=== PATIENT | female | born 1950 | race Caucasian/White ===

== ENCOUNTER 2019-12-21 07:35 | Inpatient (IN) ==
[2019-12-21] MEDS ORDERED: NS 1,000 ML ONE (07:42)
[2019-12-21] MEDS ORDERED: D50W SYRINGE ONE ×2 (07:46→08:15)
[2019-12-21] MEDS ORDERED: NS 1,000 ML IV ONE ×2 (07:49)
[2019-12-21] MEDS ORDERED: ROCEPHIN 1 GM in NS 50 ML IV ONE (07:59)
[2019-12-21] MEDS ORDERED: D50W SYRINGE IV ONE ×2 (07:59→20:46)
--- NOTE | 2019-12-21 08:05 | PROVIDER DOCUMENTATION ---
HPI-General Adult - General Chief Complaint: SEPSIS ALERT - P Stated Complaint: UNRESPONSIVE Time Seen by Provider: 12/21/19 07:58 Source: other (NURSING HOME 2 STAFF [facility]) Allergies/Adverse Reactions: Patient Allergies Allergy/AdvReac Type Severity Reaction Status Date / Time erythromycin base Allergy Unknown Unknown Verified 12/21/19 09:00 [Erythromycin Base] Penicillins Allergy Unknown Unknown Verified 12/21/19 09:00 Home Medications: Home Medication List Medication Instructions Recorded Confirmed Last Taken Type Polyethylene Glycol 3350 [Miralax] 17 gm PO DAILY #30 powd.pack 01/19/14 12/21/19 03/07/15 07:00 Rx Levetiracetam [Keppra] 750 mg PO BID 03/07/15 12/21/19 03/07/15 07:00 History Ranitidine [Zantac Liquid] 75 mg PO BID #500 bottle 02/07/16 12/21/19 Unknown Rx Alprazolam [Xanax] 0.5 mg PO TID 09/10/16 12/21/19 Unknown History Calcarb 600 With Vit D 1 tab PO BID 12/21/19 12/21/19 Unknown History Ergocalciferol (Vitamin D2) 1 cap PO DIRECTED 12/21/19 12/21/19 Unknown History [Vitamin D] Hydroxyzine HCl 1 tab PO HS 12/21/19 12/21/19 Unknown History Lipase/Protease/Amylase [Creon Dr 1 cap PO AC 12/21/19 12/21/19 Unknown History 24,000 Units Capsule] Loratadine/Pse E.r. 24 Hr 1 tab PO DAILY 12/21/19 12/21/19 Unknown History [Claritin-D 24 Hr] Omeprazole 40 mg PO DAILY 12/21/19 12/21/19 Unknown History - History of Present Illness -Gen Adult Nature of Presenting Problems: NURSING HOME PT . BASELINE SEVERE MR, GENERALIZED THRASHING MOVEMENTS BUT CANNOT SIT OR WALK OR FEED SELF, BLIND, SEIZURES. NOTICED THIS MORINING TONOT BE ACTIVE AND THRASHING IN BED USUSAL AND UNAROUSABLE BY STAFF AT BREAKFAST TIME. NO COUGHING. Review of Systems - Adult - REVIEW OF SYSTEMS - ADULT ROS:: PER STAFF Constitutional: reports: no symptoms reported. denies: fever Eyes: reports: no symptoms reported Ears, Nose, Mouth & Throat: reports: no symptoms reported Cardiovascular: reports: no symptoms reported Respiratory: reports: no symptoms reported Gastrointestinal: reports: no symptoms reported Genitourinary: reports: no symptoms reported Musculoskeletal: reports: no symptoms reported Integumentary: reports: no symptoms reported Neurological: reports: no symptoms reported Psychiatric: reports: no symptoms reported Endocrine: reports: no symptoms reported Hematologic/Lymphatic: reports: no symptoms reported Allergic/Immunologic: reports: no symptoms reported All Other Systems: Reviewed and Negative Past History - Adult - PAST MEDICAL HISTORY-ADULT Review of Records: reports: Old Records Reviewed, Nursing Assessment Review, Medications Reviewed, Social history reviewed & non-contributory. Major Childhood Illnesses: reports: denies history Cardiovascular: reports: hyperlipidemia Respiratory: reports: denies history Gastrointestinal: reports: denies history Obstetrical/Gynecological: reports: denies history Genitourinary: reports: denies history Musculoskeletal: reports: other (osteoporosis) Neurological: reports: cognitive dysfunction, Seizures/Epilepsy, other (MR) Psychiatric: reports: depression, other (MR) Endocrine/Immune: reports: denies history, thyroid disorder (hypo) Other Conditions: reports: denies history - PRIOR SURGERIES/PROCEDURES Surgical/Procedure History: reports: none - PRIOR HOSPITALIZATIONS Prior Hospitalizations: reports: none - IMMUNIZATION STATUS Childhood Immunizations: See Nurse Assessment Flu Vaccine: See Nurse Assessment - FAMILY HISTORY Family History: reviewed, not pertinent Physical Exam-General - PHYSICAL EXAM-ADULT Initial Vital Signs Reviewed: Yes (TACHY, HYPOTENSIVE) - CONSTITUTIONAL General Appearance: obtunded - EYES Eyes: other (CORNEAL ACARS OR OPACITIES) - HEAD, EARS, NOSE, MOUTH & THROAT HENMT: normocephalic/atraumatic, other ([place]ES VERY DRY) - NECK Neck: full range of motion, supple - RESPIRATORY Respiratory: lungs clear. negative: no respiratory distress, no accessory muscle use - CARDIOVASCULAR Cardiovascular: regular rate, rhythm, no murmur, tachycardia - GASTROINTESTINAL (ABDOMEN) Abdominal Exam: non tender, other (SCAPHOID) - MUSCULOSKELETAL Extremity: no pedal edema, slow capillary refill. negative: deformity - SKIN Integumentary: other (INITALLY MOTTLED EXTREMITIES) - NEUROLOGIC Neurologic: other (REPONSIVE TO PAIN). negative: focal weakness, motor weakness - PSYCHIATRIC Psych/Mental Status: other (OBTUNDED.) Progress - PLAN OF CARE/RESULTS Progress/Plan/Lab Results: Vital Signs - 8 hr 01/20/20 07:39 Pulse Rate 141 H Respiratory Rate 25 H Blood Pressure 72/43 Laboratory Results - last 24 hr 12/21/19 07:50 POC Glucose 53 L Orders Category Date Time Status Cardiac Monitoring DIRECTED Care 12/21/19 07:47 Active FSBS [Finger Stick Blood Sugar (ED)] DIRECTED Care 12/21/19 07:48 Active Knox Cath Insertion ORDERED Care 12/21/19 07:50 Active IV Insertion ORDERED Care 12/21/19 07:47 Active Notify MD of + Sepsis Screen NOW Care 12/21/19 07:47 Active Notify Physician As Ordered Care 12/21/19 07:47 Active CHEST-1 VIEW [RAD] Stat Exams 12/21/19 07:47 Ordered ABG [RESP] Routine Lab 12/21/19 07:47 Ordered BLOOD CULTURE [BLDCUL] Stat Lab 12/21/19 07:55 Ordered CBC WITH DIFF [HEME] Stat Lab 12/21/19 07:55 Ordered CK PROFILE [SP CHEM] Stat Lab 12/21/19 07:55 Ordered COMPREHENSIVE METABOLIC PANEL [CHEM] Stat Lab 12/21/19 07:55 Ordered LACTATE, PLASMA [CHEM] Q3H Lab 12/21/19 07:56 Ordered LACTATE, PLASMA [CHEM] Q3H Lab 12/21/19 11:00 Uncollected LACTATE, PLASMA [CHEM] Q3H Lab 12/21/19 14:00 Uncollected PROTIME WITH INR [COAG] Stat Lab 12/21/19 07:55 Ordered PTT [COAG] Stat Lab 12/21/19 07:55 Ordered TROPONIN T HIGH SENSITIVITY Stat Lab 12/21/19 07:55 Ordered URINALYSIS W/POSS RFLX CULT [URINALYSIS] Stat Lab 12/21/19 07:47 Uncollected 0.9% Sodium Chloride Inj [Ns] 1,000 ml Med 12/21/19 07:42 Discontinued .ROUTE As directed 0.9% Sodium Chloride Inj [Ns] 1,000 ml Med 12/21/19 07:49 Active IV 999 mls/hr 0.9% Sodium Chloride Inj [Ns] 1,000 ml Med 12/21/19 07:49 Active IV 999 mls/hr Dextrose 50% Syringe [D50w Syringe] Med 12/21/19 07:46 Discontinued 50 ml .ROUTE .STK-MED ONE Dextrose 50% Syringe [D50w Syringe] Med 12/21/19 07:59 Once 50 ml IV NOW ONE Rocephin 1 gm/Ns IV Now Med 12/21/19 07:59 Ordered CefTRIAXONE [Rocephin] 1 gm 0.9% Sodium Chloride Inj [Ns] 50 ml IV NOW Oxygen Device Stat Oth 12/21/19 07:47 Active EKG [EKG] Stat Ther 12/21/19 07:48 Ordered Result Diagrams: 12/21/19 08:27 12/21/19 08:27 - REASSESSMENT Reassessment #1 Time Reassessed: 07:55 Status: unchanged (FSBS 53, RESPONDING MORE WITH AMP D50) Reassessment #2 Time Reassessed: 08:09 Status: improving (MOVING MORE WITH AMP D50. SYST STILL 79/ IN [place] WITH 600ML NS IN. ADD NOREPI) Reassessment #3 Time Reassessed: 08:25 Status: worsening (2ND FSBS 25, ANOTHER D50 GIVEN, D10W GISEL, NOREPI STARTED. BP 58/. PT IS FULL CODE.) Reassessment #4 Time Reassessed: 11:44 Status: improving (L.A. DOWN TO 4.6) - EKG 1 Time of EKG reading by physician:: 09:25 EKG Read and Signed by:: Wing Ledezma EKG Interpretation (*Must complete 3 of following elements*): Abnormal Rate: 124 Rhythm: SINUS TACHY QRS: other (LOW VOLTAGE QRS) ST Wave: normal - CONSULTS/PCP/HOSPITALIST Notification #1 *Consult/PCP/Hospitalist*: DR VIVAR Time Discussed: 08:36 Consult Disposition: Admit (ICU ADMIT, WILL TRY TO GET BED NOW AT [facility] ICU) Departure - Departure Date of Disposition Decision: 12/21/19 Time of Disposition Decision: 09:10 DIAGNOSIS: Shock, Lactic acidosis, Pyuria, Hypoglycemia, Non-STEMI (non-ST elevated myocardial infarction) Hypotension Qualifiers: Hypotension type: unspecified hypotension type Qualified Code(s): I95.9 - Hypotension, unspecified Disposition: ADMITTED INPATIENT 09 Certified Medical Emergency: Emergent Condition: Critical - Critical Care Note This patient required my direct & personal management of CC.: Yes Total Time (mins): 45 Critical Care Statement: This patient required my direct personal management to treat or rule out processes, the absence of which, could potentiallly result in sudden, clinically significant life or limb threatening deterioration. Attestation - Physician/ DEJA Attestation The physician spent face to face time with patient:: Yes Advanced Practice Provider documentation review:: Supervising physician onsite and consulted in the evaluation and care of this patient. The physician did have a face to face encounter with the patient. Sepsis: Tissue Perfusion Assmt - Physical Exam Assessment Date: 12/21/19 Time Assessment Initialized: 10:46 Vital Signs: Last Vital Signs Temp 97.9 F 12/21/19 09:49 Pulse 122 H 12/21/19 09:49 Resp 19 12/21/19 09:49 BP 111/66 12/21/19 09:49 Pulse Ox 98 12/21/19 09:49 Height 5 ft Weight 40.37 kg 12/21/19 10:46 131 rr 20 98% w/ 2 liters 98.2 116/75, MAP 87 with norepi gtt. Lung Sounds:: lungs clear Heart Sounds:: Regular Capillary Refill Time: Less Than 2 Seconds Skin Exam:: pink - Impression Impression:: Tissue Perfusion Adequate - Plan Plan:: See Orders
[2019-12-21] MEDS ORDERED: D5 NS 1,000 ML IV ONE (08:06)
[2019-12-21] MEDS ORDERED: D10W 1,000 ML ONE (08:21)
[2019-12-21] MEDS ORDERED: D10W 1,000 ML IV SCH (08:30)
[2019-12-21 08:45] LABS: BASO# 0.01 X1000 (0.0-0.2); BASO% 0.1 % (0.0-0.8); EOS# 0.07 X1000 (0.0-0.7); EOS% 0.4 % (0.0-10.0); HEMATOCRIT 31.6 % (37.0-47.0); HEMOGLOBIN 9.8 g/dL (12.0-16.0); IMM GRAN# 1.31 X1000 (0.0-0.04); IMM GRAN% 8.3 % (0.0-0.5); LYMPH# 0.72 X1000 (1.2-3.4); LYMPH% 4.6 % (20.5-51.1); MCH 31.8 PG (27-31); MCV 102.6 FL (81-99); MONO# 0.18 X1000 (0.11-0.59); MONO% 1.1 % (1.7-9.3); MPV 10.9 FL (7.4-10.4); NEUT# 13.51 X1000 (1.4-6.5); NEUT% 85.5 % (42.2-75.2); PLT 102 X1000 (130-400); RBC 3.08 XMIL (4.2-5.4)
[2019-12-21] MEDS: LEVOPHED 8 MG in D5 1/2 NS 250 ML IV SCH ×2 (08:48→23:00)
[2019-12-21 08:50] LABS: URINE SOURCE CATH
[2019-12-21 08:52] LABS: INR 1.39; PROTIME 17.8 Seconds (11.0-16.0)
[2019-12-21 08:53] LABS: PTT 36.5 Seconds (22.3-41.8)
[2019-12-21 08:58] LABS: ALBUMIN 2.4 g/dL (3.5-5.0); CALCIUM 7.8 mg/dL (8.8-10.2); CREATININE 2.9 mg/dL (0.5-0.9); POTASSIUM 3.9 mmol/L (3.5-5.1); TOTAL BILIRUBIN 0.2 mg/dL (0.20-1.00); TOTAL PROTEIN 4.5 g/dL (6.3-8.3)
[2019-12-21 09:01] LABS: BILIRUBIN URINE NEGATIVE (NEGATIVE); BLOOD URINE MODERATE (NEGATIVE); COLOR ORANGE; GLUCOSE URINE NEGATIVE (NEGATIVE); KETONE URINE NEGATIVE (NEGATIVE); LEUKOCYTES URINE LARGE (NEGATIVE); NITRITE URINE NEGATIVE (NEGATIVE); PROTEIN URINE 100 mg/dL (NEGATIVE); SP GRAVITY URINE 1.013; TURBIDITY URINE HAZY (CLEAR); UR EPITHELIAL CELLS <10 /HPF (<10); URINE BACTERIA 4+ /HPF; URINE RBC <10 /HPF (<10); URINE WBC TNTC /HPF (<10); UROBILINOGEN URINE NORMAL (NORMAL)
--- NOTE | 2019-12-21 09:02 | Diag Imaging Result Doc PS360 ---
CHEST-1 VIEW - 12/21/2019 INDICATION: ams COMPARISON: 09/24/2019 FINDINGS: Lung volumes are critically low with some central atelectasis or crowding. Otherwise, no substantial infiltrates. Heart size is normal. No pneumothorax or large pleural effusion. IMPRESSION: Nonspecific findings. Electronically signed by Pasquale Galdamez 12/21/2019 9:00 AM
[2019-12-21 09:14] LABS: CK INDEX 1.4 (0.0-2.5); CK-MB 27.56 ng/mL (0.0-5.0)
[2019-12-21 09:34] LABS: BE -5.2 mmoll (-3.0-3.0); BLOOD TYPE ARTERIAL; HCO3-(ACT) 20.9 mmoll (20.0-26.0); METHB 0.9 % (0.0-1.5); O2(CT) 15.7 mL/dL (15.0-23.0); O2HB 96.2 % (95.0-99.0); PCO2(98.6) 37 mmHg (35-45); PO2(98.6) 98 mmHg (60-100); SAMPLE BLOOD; SAO2 99.4 % (95.0-100.0); THB 11.5 g/dL (11.5-17.4); pH(98.6) 7.34 (7.35-7.45)
[2019-12-21 09:37] LABS: ALLEN TEST YES; MODALITY CANNULA
--- NOTE | 2019-12-21 09:50 | EKG Report ---
Test Performed on : 12/21/2019 09:23:16 AM Test Reason : ams Blood Pressure : / mmHG Vent. Rate : 124 BPM Atrial Rate : 124 BPM P-R Int : 150 ms QRS Dur : 066 ms QT Int : 320 ms P-R-T Axes : 056 043 066 degrees QTc Int : 459 ms Sinus tachycardia. Low voltage QRS Borderline ECG When compared with ECG of 24-SEP-2019 14:33, No significant change was found Unconfirmed Result
[2019-12-21 09:51] LABS: BANDS 12 % (0-1); LYMPHS 9 % (21-51); MONO 2 % (1-9); SEGS 77 % (42-75)
[2019-12-21] MEDS ORDERED: ZOFRAN IV PRN ×3 (09:58→17:57)
[2019-12-21] MEDS ORDERED: PROTONIX IV SCH (10:00)
[2019-12-21] MEDS ORDERED: NS 1,000 ML IV SCH ×2 (10:00→18:00)
[2019-12-21] MEDS ORDERED: LEVOPHED 8 MG in D5 1/2 NS 250 ML IV SCH ×2 (10:00→18:00)
[2019-12-21] MEDS ORDERED: SODIUM CHLORIDE 0.9% INJ SCH (10:00)
[2019-12-21] MEDS ORDERED: ATIVAN IV PRN ×2 (10:02→10:32)
[2019-12-21] MEDS ORDERED: KEPPRA 750 MG in NS 100 ML IV SCH (11:00)
[2019-12-21] MEDS ORDERED: ASPIRIN ONE (11:07)
[2019-12-21] MEDS ORDERED: ASPIRIN PR ONE (11:12)
--- NOTE | 2019-12-21 12:07 | HISTORY AND PHYSICAL ---
PRIMARY CARE PHYSICIAN: Yvan Reyes CHIEF COMPLAINT: Altered mental status. HISTORY OF PRESENT ILLNESS: Ms Castañeda is a 69-year-old female who presents with past medical history of severe cognitive dysfunction, seizures, hypothyroidism, vitamin D deficiency, chronic constipation, osteoporosis, GERD and incontinence. The patient presents to the ER today with altered mental status. The patient is a resident of a local half-way. The half-way stated that last p.m. they did notice the patient to be more altered mental status. They stated they could hardly get her to wake at all. Patient is usually nonverbal and does have severe cognitive dysfunction and is contracted but they state that she usually does make sounds and is able to motion with her hands and is usually alert. However, last p.m. she was not. This morning when she continued to not being awake, they decided to call the EMS at that time. Upon arrival to the ER, the patient did have a notable temp of 96.6 degrees and was very cold to the touch. She was noted to be mottled up to her shoulders. The patient was noted to be unresponsive and severely dehydrated. The patient remains unresponsive and unable to answer my questions. REVIEW OF SYSTEMS: As described in the HPI. Other systems unable to obtain secondary to the patient's altered mental status and severe cognitive dysfunction. PAST MEDICAL HISTORY: 1. Severe cognitive dysfunction. 2. Seizures. 3. Hypothyroidism. 4. Vitamin D deficiency. 5. Chronic constipation. 6. Osteoporosis. 7. Incontinence. 8. GERD. PAST SURGICAL HISTORY: None. FAMILY HISTORY: Noncontributory. SOCIAL HISTORY: Patient does live in a local half-way. There is no history of smoking, alcohol or illicit drug use. The patient pharmacy [facility]. The patient is essentially wheelchair bound. She does not wear any oxygen. ALLERGIES: Erythromycin and penicillin. HOME MEDICATIONS: 1. Calcium carbonate with vitamin D 1 tablet daily. 2. Colace 200 mg daily. 3. Keppra 750 mg p.o. b.i.d. 4. Vitamin D2 50,000 units p.o. q.month. 5. Omeprazole 20 mg 2 capsules daily. 6. Ranitidine 15 mg/mL syrup b.i.d. 7. Zinc oxide 20% ointment daily. 8. Loratadine D q day. 9. ClearLax this is p.r.n. constipation. 10. Hydroxyzine 50 mg at bedtime. 11. Alprazolam 0.5 mg t.i.d. 12. Vitamin A and D ointment at bedtime. 13. Jil ALTMAN 24,000 p.o. t.i.d. PHYSICAL EXAM: VITAL SIGNS: Temperature 97.9 degrees, pulse rate 122, respiratory rate 19, blood pressure 111/66, O2 saturation 98% on nasal cannula at 2 L. GENERAL: This is a 69-year-old female. She is lying in the ER stretcher. She is very thin and very frail. She is contracted. She is not responding at present time. HEENT: Atraumatic, normocephalic. Pupils are equal, round, reactive to light. Mucous membranes are dry. NECK: Supple. No lymphadenopathy. Trachea midline. No JVD. CV: Regular rate and rhythm. No murmurs, gallops, or rubs appreciated. RESPIRATORY: Lung sounds are clear with equal chest excursion. Respirations are nonlabored. No accessory muscle usage. GASTROINTESTINAL: Abdomen is flat, nontender, nondistended. Bowel sounds present x4. : There is CV tenderness noted. The patient does have a Knox catheter in the bladder. It is draining clear yellow urine output. NEUROLOGIC: Patient is not responding at present time. She does move extremities to painful stimuli. She will not open her eyes though to voice or any kind of stimulus. MUSCULOSKELETAL: Moves extremities to painful stimuli. Patient is contracted in the lower extremities. EXTREMITIES: No clubbing, no cyanosis. No edema. DP and PT pulses are present and palpable. The patient is very thin and frail. SKIN: Warm, dry, and intact. Turgor is very poor. The patient is very thin and very frail. LABORATORY AND DIAGNOSTICS: Sodium 144, potassium 3.9, carbon dioxide 21, BUN is 60, creatinine is 2.9, GFR is 16, glucose is 444, calcium is 7.8, creatine kinase is 1916. Troponin T is 386. Plasma lactate is 7. White blood cell count is 15.8, hemoglobin is 9.8, hematocrit is 31.6, platelet count is a 102,000. Urine does show a large amount of leukocytes, positive white blood cell count, 4+ bacteria. ASSESSMENT AND PLAN: 1. Urosepsis. We are going to admit this patient to the ICU unit. The patient does have a elevated white blood cell count and elevated lactic acid. They were unable to obtain a blood pressure on arrival in the ER. She was started on a Levophed drip. Blood pressure has improved with Levophed drip. She was given 2 L of normal saline on arrival. They did place a warming blanket on her on arrival. Initial fingerstick on arrival to the ER was 53. However, this was with a glucometer. They did give her 2 amps of D50 and start her on a D10 drip. When they were able to obtain labs on the patient her blood sugar was 444 on her labs. We did stop the D10 infusion. We will check her blood sugars every 4 hours. We are going to repeat her lactates per protocol and continue IV fluid hydration and normal saline at 126 mL an hour. I have started her on Vancomycin and Maxipime for IV antibiotic coverage. 2. Dehydration. The patient was administered 2 L boluses in the ER, normal saline. We will continue IV fluid hydration of normal saline at 126 mL/h and repeat labs in the morning. 3. Acute kidney injury, likely secondary to #2. We will continue IV fluid hydration at normal saline at 126 mL an hour and repeat labs in the morning. 4. Pancytopenia with no obvious sign of bleeding. This is likely secondary to #1 and #3. We will provide IV fluid hydration and monitor with daily labs. I will hold off on any anticoagulation at this time. 5. Severe cognitive dysfunction, chronic. The patient does live in a local half-way. She does have altered mental status and is dysphasic according to the group fitness instructor on a daily basis, but however, she usually is awake and able to function. We are aware. 6. Seizures, chronic. I have resumed her Keppra according to her home dose, but in IV form. I have also ordered Ativan p.r.n. according to her home dosages. 7. Chronic osteoporosis. The patient is contracted and does not ambulate, aware. 8. Hypothyroidism, chronic. The patient does not seem to be on any medications at home for this. I will order a TSH level. 9. Chronic constipation. The patient does take laxatives at home p.r.n. aware. 10. Gastroesophageal reflux disease, chronic. I have started the patient on Protonix IV daily. 11. Deep venous thrombosis prophylaxis. Lenard's and SCDs. Dictated by RAAD Dunn for Filemon Pagan MD cc: MD Blas Reeder MD [facility] HOSPITALPerla
[2019-12-21] MEDS ORDERED: MAXIPIME 1 GM in NS 50 ML IV SCH (13:15)
[2019-12-21 13:30] LABS: CK-MB 43.13 ng/mL (0.0-5.0)
[2019-12-21 13:32] LABS: CK INDEX 1.5 (0.0-2.5)
[2019-12-21] MEDS ORDERED: LASIX IV ONE (14:26)
[2019-12-21] MEDS: CARDIZEM 100 MG/NS 100 MG/100 ML IVPB IV SCH ×3 (15:30→22:10)
--- NOTE | 2019-12-21 20:17 | HISTORY AND PHYSICAL ---
ADDENDUM: Patient seen and examined by myself, full note dictated and discussed with nurse practitioner. Patient is a 69-year-old female who presented to hospital with altered mental status. She lives in a correction and is nonverbal with severe dysfunction and muscle contractures at her baseline. Apparently she was found this morning to have altered mental status brought her the ER where she was noted to have a low blood sugar, blood pressures have been dropping. Appears though she is septic most likely from a urinary source. We are going to admit her the hospital, place her on IV fluids, Levophed, antibiotics and will follow. At lunchtime Ms. Castañeda's brother was at the bedside. Thirty-five minutes was spent in discussion regarding end of life, code status, long-term treatment. She is a DNR level 1. cc: Filemon Pagan MD MTDD
[2019-12-21] MEDS ORDERED: D50W SYRINGE IV PRN (20:47)
[2019-12-21 21:33] LABS: CK INDEX 1.9 (0.0-2.5); CK-MB 29.67 ng/mL (0.0-5.0)
[2019-12-21 23:01] LABS: URINE SOURCE CATH
[2019-12-21] MEDS: KEPPRA 750 MG in NS 100 ML IV SCH (23:05)
[2019-12-21 23:14] LABS: BILIRUBIN URINE NEGATIVE (NEGATIVE); BLOOD URINE MODERATE (NEGATIVE); COLOR YELLOW; GLUCOSE URINE TRACE mg/dL (NEGATIVE); KETONE URINE NEGATIVE (NEGATIVE); LEUKOCYTES URINE LARGE (NEGATIVE); NITRITE URINE NEGATIVE (NEGATIVE); PROTEIN URINE TRACE mg/dL (NEGATIVE); SP GRAVITY URINE 1.008; TURBIDITY URINE CLEAR (CLEAR); UROBILINOGEN URINE NORMAL (NORMAL)
[2019-12-21 23:54] LABS: UR EPITHELIAL CELLS <10 /HPF (<10); URINE BACTERIA NEGATIVE /HPF; URINE RBC <10 /HPF (<10); URINE WBC TNTC /HPF (<10)
[2019-12-22 00:21] LABS: URINE CASTS NONE SEEN; URINE CRYSTALS NONE SEEN; URINE SMALL ROUND CELLS NONE SEEN; URINE YEAST NONE SEEN
[2019-12-22] MEDS ORDERED: D5W 1,000 ML IV SCH (00:30)
[2019-12-22] MEDS: MAXIPIME 1 GM in NS 50 ML IV SCH ×3 (00:50→15:00)
[2019-12-22 05:47] LABS: HEMATOCRIT 40.4 % (37.0-47.0); HEMOGLOBIN 13.2 g/dL (12.0-16.0); MCH 32.4 PG (27-31); MCHC 32.7 g/dL (33-37); MCV 99.3 FL (81-99); MPV 11.1 FL (7.4-10.4); RBC 4.07 XMIL (4.2-5.4); RDW 14.2 % (11.5-14.5); WBC 19.68 X1000 (4.8-10.8)
[2019-12-22 06:14] LABS: CALCIUM 7.5 mg/dL (8.8-10.2); CREATININE 2.7 mg/dL (0.5-0.9); MAGNESIUM 1.7 mg/dL (1.5-2.7); POTASSIUM 3.8 mmol/L (3.5-5.1)
[2019-12-22] MEDS ORDERED: ROCEPHIN 1 GM in NS 50 ML IV SCH (08:00)
[2019-12-22 08:11] LABS: CK INDEX 2.4 (0.0-2.5); CK-MB 26.13 ng/mL (0.0-5.0)
[2019-12-22] MEDS: CLINIMIX E 4.25%-5% SOLUTION 1,000 ML IV SCH ×2 (08:37→19:00)
--- NOTE | 2019-12-22 09:00 | PROGRESS NOTE ---
DATE: 12/22/2019 SUBJECTIVE: The patient is nonverbal. The patient lives in a shelter. detention staff member is at bedside. She reports that this patient has been losing weight recently, even though apparently she has a good appetite. As per nursing staff, the vasopressor has been stopped at 5 a.m., but MAP is still low, so we may need to restart it soon. OBJECTIVE: Vital Signs: Temperature 97.4 degrees, heart rate 108, respiratory rate 15, blood pressure 96/57, O2 saturation 97% on room air. General: This is a chronically ill-looking and extremely cachectic, 69-year-old female, lying in bed in no acute distress. Cardiovascular: S1, S2 heard. Tachycardic, but no murmurs, gallops, or rubs noted. Respiratory: Clear bilaterally to auscultation. No work of breathing or using accessory muscles. Abdomen: Depressed. Apparently nontender to palpation. Bowel sounds present. No organomegaly. Genitourinary: CVA tenderness noted with Knox catheter in place. Neurological: The patient is nonverbal according to shelter staff. Extremities: All of them are contracted. LABORATORY DATA: White cell count 19.68, hemoglobin 13.2, hematocrit 40.4, platelets 99,000. Sodium 146, potassium 3.8, creatinine is 2.7, with glucose 40. Troponin 317. ASSESSMENT AND PLAN: 1. Septic shock secondary to urinary tract infection. The patient has been started on vancomycin and cefepime. Blood cultures and urine culture are still pending. Even though the Levophed has been stopped, I think we are going to restart it because blood pressure and MAP are still low. White cell count unfortunately is getting worse, although she is not spiking any fever. Will continue to monitor. 2. Acute kidney injury, most likely secondary to hypotension and acute tubular necrosis. Her renal function is a little bit better starting today with hydration. Will continue with the same management. 3. Severe cognitive dysfunction, chronic. Will continue to monitor. 4. Severe malnutrition. I do not know if this patient has developed any malignancy that could explain this profound weight loss. We are going to do a CT of chest, abdomen, and pelvis, and will go from there. Will continue with Clinimix for nutrition. Will continue to monitor. 5. Seizures. Will continue with her Keppra intravenously because she is not able to take anything by mouth. 6. Hypothyroidism. That condition is chronic. TSH has been checked and that is normal, so I do not think we will need to provide any medication at this point. 7. Gastroesophageal reflux disease. Will continue with Protonix intravenously. 8. Disposition. Will continue to monitor this patient closely. cc: Nabeel Foreman MD
--- NOTE | 2019-12-22 11:27 | Diag Imaging Result Doc PS360 ---
CT THORAX/ABD/PELVIS W/O CON - 12/22/2019 INDICATION: severe malnutrition, malignancy suspected COMPARISON: 02/18/2019 FINDINGS: CHEST: There is severe cachexia with body wall edema and loss of the subcutaneous fat diffusely. No visible mass or adenopathy. There are trace pleural effusions. There is some faint hazy left lower lobe infiltrate, nonspecific. Airways are all clear. Bones are intact. Abdomen pelvis: There are two large stones in the left renal collecting system and pelvis. In the renal pelvis, this measures 18 x 10 mm. In the collecting system, the largest stone measures 11 x 7 mm. There is probably some mild hydronephrosis. Once again, there is severe cachexia with body wall edema. There is massive rectal stool impaction. There is a rectal stool ball measuring 8 x 10 cm. Knox catheter in the urinary bladder. Diffuse constipation throughout the colon. No free air. No significant ascites. Bony structures are intact. IMPRESSION: 1. Massive rectal stool impaction. 2. Large left renal stones. 3. Trace pleural effusions. Small nonspecific left lower lobe infiltrate. 4. Severe cachexia with body wall edema. This exam was performed using automated exposure control, adjustment of mA or kV according to patient size, and/or use of iterative reconstruction technique Electronically signed by Pasquale Galdamez 12/22/2019 11:24 AM
[2019-12-22] MEDS: PROTONIX IV SCH (11:30)
[2019-12-22] MEDS: KEPPRA 750 MG in NS 100 ML IV SCH ×2 (11:31→23:39)
[2019-12-22] MEDS ORDERED: CARDIZEM IV ONE (17:08)
[2019-12-22] MEDS: CARDIZEM 100 MG/NS 100 MG/100 ML IVPB IV SCH ×2 (17:22→23:38)
[2019-12-23] MEDS ORDERED: MAXIPIME 0.5 GM in NS 50 ML IV SCH (02:00)
[2019-12-23] MEDS: CLINIMIX E 4.25%-5% SOLUTION 1,000 ML IV SCH ×2 (04:21→14:30)
--- NOTE | 2019-12-23 06:42 | PROGRESS NOTE ---
DATE: 12/23/2019 SUBJECTIVE: The patient is nonverbal. She lives in a residential. According to nursing staff, and also upon my examination, she is a little bit more responsive. She opens eyes to verbal stimuli although she does not talk. She is not requiring any vasopressors anymore. OBJECTIVE: Vital Signs: Temperature 97.7 degrees, heart rate 90, respiratory rate 17, blood pressure 101/75. O2 saturation 95% on room air. General: This is a chronically ill-looking, extremely cachectic 69-year-old female lying in bed in no acute distress. Cardiovascular: S1, S2 heard. Tachycardic but no murmurs, gallops, or rubs noted. Respiratory: Clear bilaterally to auscultation. No work of breathing or using accessory muscles. Abdomen: Soft. Depressed, but apparently nontender to palpation. Bowel sounds present. No organomegaly. Genitourinary: Knox catheter in place. Neurological: Patient is nonverbal, but open eyes to verbal stimuli. LABORATORY DATA: Labs are still pending at the time of my dictation. The blood culture shows gram-negative rods. ASSESSMENT AND PLAN: 1. Septic shock secondary to urinary tract infection. Patient is on vancomycin day #2 of the treatment. Because of the negative rods, we decided to change cefepime for meropenem. Blood culture showed gram-negative rods but the final sensitivity is not available yet. She is not requiring any vasopressors. We do not have the results of the white cell count yet, but she is not spiking any fever. At this point, we will continue to monitor. 2. Acute kidney injury. We do not have results of labs today. This condition as we mentioned before, is most likely related to hypotension, acute tubular necrosis. We will continue to monitor BMP. 3. Atrial fibrillation with rapid ventricular response. Currently, she has converted last night, and the heart rate is back to normal. She is not requiring any Cardizem. At this point, I think that condition was secondary to septic shock. We will continue to monitor. 4. Severe cognitive impairment, that condition is chronic. The patient lives in residential. We will continue to monitor. 5. Protein calorie malnutrition. Because of suspicion for malignancy, we have done a CT of the chest, abdomen and pelvis that basically revealed left lower lobe pneumonia, and also massive constipation. We will provide 1 enema today, and see how she does. She is not able to take anything by mouth. At this point, we will continue with Clinimix. 6. Seizures. We will continue with her Keppra but IV because she is not able to take anything by mouth at this point. 7. Hypothyroidism. I am not quite sure that she has been taking any levothyroxine but TSH is normal. 8. GERD. We will continue with Protonix IV. 9. Disposition. We will continue to monitor this patient closely in the intensive care unit. Considering that her prognosis is very poor, we have consulted palliative care team. We will see what they have to say. cc: Nabeel Foreman MD MTDD
[2019-12-23 07:03] LABS: EOS# 0.02 X1000 (0.0-0.7); EOS% 0.1 % (0.0-10.0); HEMATOCRIT 34.9 % (37.0-47.0); HEMOGLOBIN 11.7 g/dL (12.0-16.0); IMM GRAN% 1.5 % (0.0-0.5); LYMPH# 0.64 X1000 (1.2-3.4); LYMPH% 4.7 % (20.5-51.1); MCH 32.1 PG (27-31); MCHC 33.5 g/dL (33-37); MCV 95.9 FL (81-99); MONO# 0.13 X1000 (0.11-0.59); MPV 11.5 FL (7.4-10.4); NEUT# 12.63 X1000 (1.4-6.5); NEUT% 92.7 % (42.2-75.2); PLT 79 X1000 (130-400); RBC 3.64 XMIL (4.2-5.4); RDW 13.8 % (11.5-14.5); WBC 13.62 X1000 (4.8-10.8)
[2019-12-23 07:33] LABS: ALBUMIN 2.4 g/dL (3.5-5.0); CALCIUM 8.1 mg/dL (8.8-10.2); CREATININE 1.3 mg/dL (0.5-0.9); PHOSPHORUS 3.1 mg/dL (2.7-4.5); POTASSIUM 3.5 mmol/L (3.5-5.1)
[2019-12-23 07:48] LABS: BANDS 6 % (0-1); LYMPHS 2 % (21-51); MONO 3 % (1-9); SEGS 89 % (42-75)
[2019-12-23] MEDS: MERREM 500 MG in NS 50 ML IV SCH ×3 (08:05→23:05)
[2019-12-23] MEDS: PROTONIX IV SCH (09:18)
[2019-12-23] MEDS: SODIUM CHLORIDE 0.9% INJ SCH (09:18)
[2019-12-23] MEDS: KEPPRA 750 MG in NS 100 ML IV SCH ×2 (12:00→23:05)
[2019-12-23] MEDS: LOPRESSOR IV SCH ×3 (12:16→23:10)
[2019-12-24] MEDS: CLINIMIX E 4.25%-5% SOLUTION 1,000 ML IV SCH ×3 (02:33→20:49)
[2019-12-24] MEDS: LOPRESSOR IV SCH ×5 (05:44→20:49)
[2019-12-24 05:54] LABS: BASO# 0.01 X1000 (0.0-0.2); BASO% 0.1 % (0.0-0.8); EOS# 0.02 X1000 (0.0-0.7); EOS% 0.2 % (0.0-10.0); HEMATOCRIT 35.8 % (37.0-47.0); HEMOGLOBIN 11.8 g/dL (12.0-16.0); IMM GRAN# 0.04 X1000 (0.0-0.04); IMM GRAN% 0.4 % (0.0-0.5); LYMPH# 0.94 X1000 (1.2-3.4); LYMPH% 8.3 % (20.5-51.1); MCH 31.7 PG (27-31); MCV 96.2 FL (81-99); MONO# 0.63 X1000 (0.11-0.59); MONO% 5.6 % (1.7-9.3); MPV 11.2 FL (7.4-10.4); NEUT% 85.4 % (42.2-75.2); PLT 67 X1000 (130-400); RBC 3.72 XMIL (4.2-5.4); RDW 13.6 % (11.5-14.5); WBC 11.34 X1000 (4.8-10.8)
[2019-12-24 06:08] LABS: AGAP 12; ALBUMIN 2.4 g/dL (3.5-5.0); BUN 49 mg/dL (8-22); CALCIUM 8.8 mg/dL (8.8-10.2); CHLORIDE 109 mmol/L (98-107); COSMO 297; CREATININE 0.5 mg/dL (0.5-0.9); ESTIMATED GFR > 60; GLUCOSE 87 mg/dL (70-104); PHOSPHORUS 2.5 mg/dL (2.7-4.5); POTASSIUM 3.3 mmol/L (3.5-5.1); SODIUM 143 mmol/L (136-145); TCO2 22 mmol/L (25-35)
[2019-12-24 06:52] LABS: LYMPHS 12 % (21-51); MONO 5 % (1-9); SEGS 83 % (42-75)
[2019-12-24] MEDS ORDERED: NS IV ONE (07:09)
[2019-12-24] MEDS ORDERED: SODIUM PHOSPHATE IV ONE (07:09)
[2019-12-24] MEDS ORDERED: FLEET MINERAL OIL ENEMA PR ONE (07:10)
[2019-12-24 07:39] LABS: HEMOGLOBIN A1C 5.1 % (4.8-6.0)
[2019-12-24] MEDS: KEFZOL 1 GM/D5W 1 GM/50 ML IVPB IV SCH ×3 (07:41→23:48)
[2019-12-24] MEDS ORDERED: SODIUM CHLORIDE 0.9% INJ PRN (07:42)
[2019-12-24] MEDS: SYNTHROID IV SCH (08:02)
[2019-12-24] MEDS: POTASSIUM CHLORIDE 20 MEQ/SWI 20 MEQ/100 ML IVPB IV SCH ×2 (08:52→11:17)
--- NOTE | 2019-12-24 09:01 | PROGRESS NOTE ---
DATE: 12/24/2019 SUBJECTIVE: Patient is nonverbal. She [facility] a jail. One member of the jail is at bedside and reports that she is coming back to her baseline. She looks more responsive than yesterday. She is awake. OBJECTIVE: Vital Signs: Temperature 96.4 degrees, heart rate 66, respiratory rate 22, blood pressure 143/60, O2 saturation 97% on room air. General examination: This is a chronically ill- looking and extremely cachectic, 69-year-old female, lying in bed in no acute distress. Cardiovascular exam: S1, S2 heard. No murmurs, gallops, or rubs. Regular rate and rhythm. Respiratory exam: Clear bilaterally to auscultation. No work of breathing or using accessory muscles. Abdomen: Soft. Depressed, but apparently nontender to palpation. Bowel sounds present. No organomegaly. Genitourinary: Knox catheter in place. Neurological exam: Patient is nonverbal. Patient is awake, moves 4 extremities spontaneously. LABORATORY DATA: The blood culture shows E coli. White cell count is 11.34 with hemoglobin 11.8, hematocrit 35.8, platelets 67. Renal function is 0.5 with potassium 3.3. Phosphorus is 2.5. ASSESSMENT AND PLAN: 1. Septic shock secondary to Escherichia coli bacteremia. The patient has been on meropenem for this gram-negative infection, but the result of the blood culture is available. It showed Escherichia coli and, because it is sensitive to cefazolin, we will change to that medication. In this case, 1 gram intravenous every 8 hours. White cell count is almost back to normal. Patient is not spiking any fever. The results of the urine culture is still pending, but at this point we will continue with management mentioned above. 2. Acute kidney injury most likely related to dehydration. That condition is completely resolved today. 3. Atrial fibrillation with rapid ventricular rate. Patient now is in normal sinus rhythm. For rapid ventricular rate, she has been receiving metoprolol 2.5 mg intravenous every 6 hours. 4. Severe cognitive impairment. Patient lives in jail. That condition is chronic. We will continue to monitor. 5. Protein-calorie malnutrition. We will continue with Clinimix. 6. Severe constipation. We will provide 1 dose of enema and will see how she does. 7. Seizures. No episodes of seizures. While she is here in the hospital, we will continue with Kemabelra intravenous. 8. Hypothyroidism. Aware. Her thyroid stimulating hormone is normal. I think we will provide small doses of levothyroxine intravenous considering her age, weight and comorbidities. 9. Gastroesophageal reflux disease. We will continue Protonix intravenous. DISPOSITION: I think this patient is much more stable. We will transfer her to PVC unit today. cc: Nabeel Foreman MD
[2019-12-24] MEDS: PROTONIX IV SCH (10:06)
[2019-12-24] MEDS: KEPPRA 750 MG in NS 100 ML IV SCH (11:17)
[2019-12-25] MEDS: KEPPRA 750 MG in NS 100 ML IV SCH ×3 (00:16→23:35)
[2019-12-25] MEDS: LOPRESSOR IV SCH ×4 (03:17→20:13)
[2019-12-25 06:24] LABS: BASO# 0.03 X1000 (0.0-0.2); BASO% 0.3 % (0.0-0.8); EOS# 0.06 X1000 (0.0-0.7); EOS% 0.5 % (0.0-10.0); HEMATOCRIT 35.7 % (37.0-47.0); HEMOGLOBIN 11.7 g/dL (12.0-16.0); IMM GRAN# 0.12 X1000 (0.0-0.04); IMM GRAN% 1.1 % (0.0-0.5); LYMPH% 12.4 % (20.5-51.1); MCHC 32.8 g/dL (33-37); MCV 97.5 FL (81-99); MONO# 1.13 X1000 (0.11-0.59); MPV 12.3 FL (7.4-10.4); NEUT# 8.52 X1000 (1.4-6.5); NEUT% 75.7 % (42.2-75.2); PLT 49 X1000 (130-400); RBC 3.66 XMIL (4.2-5.4); RDW 13.5 % (11.5-14.5); WBC 11.26 X1000 (4.8-10.8)
[2019-12-25] MEDS: SYNTHROID IV SCH (06:32)
[2019-12-25 06:52] LABS: AGAP 9; ALBUMIN 2.3 g/dL (3.5-5.0); BUN 39 mg/dL (8-22); CALCIUM 8.3 mg/dL (8.8-10.2); CHLORIDE 108 mmol/L (98-107); COSMO 289; CREATININE 0.4 mg/dL (0.5-0.9); ESTIMATED GFR > 60; GLUCOSE 111 mg/dL (70-104); POTASSIUM 3.9 mmol/L (3.5-5.1); SODIUM 140 mmol/L (136-145); TCO2 23 mmol/L (25-35)
[2019-12-25] MEDS: CLINIMIX E 4.25%-5% SOLUTION 1,000 ML IV SCH ×3 (07:50→15:36)
[2019-12-25] MEDS: KEFZOL 1 GM/D5W 1 GM/50 ML IVPB IV SCH (08:25)
[2019-12-25] MEDS: PROTONIX IV SCH ×2 (08:25→09:07)
[2019-12-25] MEDS: LACTULOSE PO SCH ×2 (08:25→20:12)
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
[2019-12-25] MEDS: ROCEPHIN 1 GM in NS 50 ML IV SCH (10:17)
--- NOTE | 2019-12-25 16:50 | GASTROENTEROLOGY CONSULTATION ---
DATE: 12/25/2019 REASON FOR CONSULT: Cachexia r/o GI malignancy HISTORY OF PRESENT ILLNESS: Ms. Castañeda is a 69-year-old female who is severely malnourished and cachectic with a past medical history of cognitive dysfunction, seizures, hypothyroidism, mental retardation, vitamin D deficiency, chronic constipation, osteoporosis, GERD, paraplegia, and incontinence. She presented to the ER on Saturday with altered mental status. She is from a halfway and one of the representatives from the halfway is at the bedside provided all the information. She mentioned that on Saturday the patient was not moving around, not eating and had no strength. The patient does not talk, but usually she makes a lot of noise, but that morning she did not. She was not making any noise and she was very quiet. She has denied patient having nausea, vomiting, but she also mentioned that she has chronic constipation. She also mentioned that the patient's skin color did not look well, so they called 911 and brought her to the emergency room. PAST MEDICAL HISTORY: Severe cognitive dysfunction, seizures, hypothyroidism, chronic constipation, vitamin D deficiency, osteoporosis, incontinence, and GERD. PAST SURGICAL HISTORY: None. FAMILY HISTORY: Noncontributory. SOCIAL HISTORY: The patient is single. She lives in a halfway. She is wheelchair bound. No history of smoking, alcohol, or illicit drug use. ALLERGIES: The patient is allergic to erythromycin and penicillin. HOME MEDICATIONS: MiraLAX 17 grams p.o. daily. Keppra 750 b.i.d. twice a day. Ranitidine 75 mg p.o. twice a day. Xanax 0.5 mg p.o. 3 times a day. Creon 06218 units 1 capsule before meals. Loratadine 1 tablet daily. Alexis-Carb 600 with vitamin D 1 tablet p.o. twice a day, vitamin D2 1 capsule p.o. 63730 units. Hydroxyzine HCL 50 mg 1 tablet at bedtime. Omeprazole 40 mg p.o. daily. REVIEW OF SYSTEMS: As per HPI, but unable to obtain other information due to patient's altered mental status and cognitive dysfunction. PHYSICAL EXAMINATION: Vital Signs: Temperature 98.2, pulse is 84, respirations 18, blood pressure 146/95, oxygen saturation 98% on room air. The patient's weight is 66 pounds. BMI is 12.8 kg/m2. General: The patient is very thin, cachectic, frail and has severe cognitive dysfunction. Unable to assess patient. HEENT: Pale conjunctivae. No icterus. PERRL. Neck: Supple. Lungs: Clear to auscultation. Cardiovascular: Regular rate and rhythm. Abdomen: Flat and nontender, nondistended. Soft bowel sounds heard and active bowel sounds heard in all 4 quadrants. Extremities: No clubbing, no cyanosis. Pedal pulses 2+ present bilaterally. Neurologic: Severe cognitive dysfunction, altered mental status. Unable to assess, paraplegia LABORATORY DATA: WBCs 11.26, RBC 3.6, hemoglobin 11.7, hematocrit is 35.7, platelet count is 49,000. Sodium 140, potassium 3.9, chloride 108, carbon dioxide 23, anion gap 9, BUN 39, creatinine 0.4, glucose 111, calcium 8.3, phosphorus 3.0, magnesium 1.5, albumin is 2.3. IMPRESSION AND PLAN: Cachexia E coli bacteremia E coli UTI GABRIEL Sepsis Thrombocytopenia Seizure disorder MR RECOMMENDATIONS: Ms. Castañeda is a 69-year-old female with severe cognitive impairment, GI has been consulted for her cachexia r/o GI malignancy. The patient is currently receiving Clinimix at 100 mL/hour for her nutrition. She is on PPI 40 mg daily. The patient is receiving antibiotic Rocephin for her sepsis. She is also on IV Keppra at 100 mL/hr for her seizures. The patient is extremely thin, frail and severe cognitive impairment, may not be a candidate for any procedure as of now. We would recommend her to have a palliative care consult. We will continue to provide supportive care and follow the plan of care per PCP. This plan was discussed with Dr. Hernandez. Thank you for your consult. Please call us for any further questions or concerns. Dictated by RAAD Winter for Wai Hernandez MD Physician Attestation I have seen and examined the patient. I have discussed and reviewed the note by Chelsea SHANKAR and agree with findings and plan as documented. In brief, Ms. Castañeda is a 69 year old woman with MR, paraplegia, seizure d/o, chronic constipation who presented from halfway with AMS found to have E coli bacteremia and UTI. GI was consulted for cachexia. Per caregiver and brother, patient does not have dysphagia and eats 3 meals per day with assist. She does have 3-4 loose stools per day while on laxatives. She had EGD/colonoscopy in 03/[address] Chester that was only revealing for diverticulosis. EGD was normal. Ralph CT on admission was unrevealing for etiology of weight loss. TSH, LFTs unrevealing. She has mild normocytic anemia. Her sister had leukemia. She has not been seen by oncology per report. Of note, brother does not want patient to have PEG tube. MTDD
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
[2019-12-26] MEDS: CLINIMIX E 4.25%-5% SOLUTION 1,000 ML IV SCH ×5 (00:43→22:36)
[2019-12-26] MEDS: ATIVAN IV PRN (00:47)
[2019-12-26] MEDS: LOPRESSOR IV SCH ×4 (01:38→20:32)
[2019-12-26] MEDS: SYNTHROID IV SCH ×2 (05:56→06:04)
[2019-12-26 07:03] LABS: BASO# 0.05 X1000 (0.0-0.2); BASO% 0.4 % (0.0-0.8); EOS# 0.09 X1000 (0.0-0.7); EOS% 0.6 % (0.0-10.0); HEMATOCRIT 34.8 % (37.0-47.0); HEMOGLOBIN 11.2 g/dL (12.0-16.0); IMM GRAN# 0.43 X1000 (0.0-0.04); LYMPH# 1.48 X1000 (1.2-3.4); LYMPH% 10.4 % (20.5-51.1); MCH 31.8 PG (27-31); MCHC 32.2 g/dL (33-37); MCV 98.9 FL (81-99); MONO# 1.13 X1000 (0.11-0.59); MONO% 7.9 % (1.7-9.3); MPV 12.7 FL (7.4-10.4); NEUT# 11.07 X1000 (1.4-6.5); NEUT% 77.7 % (42.2-75.2); PLT 72 X1000 (130-400); RBC 3.52 XMIL (4.2-5.4); RDW 13.5 % (11.5-14.5); WBC 14.25 X1000 (4.8-10.8)
[2019-12-26 07:59] LABS: AGAP 10; ALBUMIN 2.4 g/dL (3.5-5.0); BUN 37 mg/dL (8-22); CALCIUM 8.4 mg/dL (8.8-10.2); CHLORIDE 104 mmol/L (98-107); COSMO 285; CREATININE 0.5 mg/dL (0.5-0.9); ESTIMATED GFR > 60; GLUCOSE 109 mg/dL (70-104); POTASSIUM 4.4 mmol/L (3.5-5.1); SODIUM 138 mmol/L (136-145); TCO2 24 mmol/L (25-35)
[2019-12-26] MEDS: ROCEPHIN 1 GM in NS 50 ML IV SCH (09:05)
[2019-12-26] MEDS: LACTULOSE PO SCH ×2 (09:05→20:34)
[2019-12-26] MEDS: PROTONIX IV SCH (09:05)
--- NOTE | 2019-12-26 10:49 | CONSULTATION ---
DATE OF CONSULTATION: 12/25/2019 CHIEF COMPLAINT: Renal stones. HISTORY OF PRESENT ILLNESS: Ms. Castañeda is a 69-year-old female with past medical history of cognitive dysfunction, seizures, hypothyroidism, vitamin D deficiency, chronic constipation, osteoporosis, gastroesophageal reflux disease, and urinary incontinence. The patient was brought to the emergency room on 12/21/2019 with altered status. The patient currently lives in a custodial and was found to be altered from her normal state. She was very difficult to be aroused. The patient is nonverbal at baseline though was not acting herself. She was brought in, acute kidney injury and leukocytosis was elevated at 15.8 with a creatinine of 2.9. A CT scan was performed which showed two large stones within the left kidney which were larger than previous CT scan from January 2019. The patient was admitted for observation and started on IV antibiotics. The patient's urine and blood cultures grew E. coli. Urology was consulted regarding large stones of the kidneys. The patient has been seen previously by Dr. Borja regarding stones, most recently back in January 2019. The patient had significant constipation and was recommend to optimize her constipation prior to proceed to the lithotripsy and breaking of stones. She never returned for follow-up following that appointment. Urology was consulted today for further recommendations. PAST MEDICAL HISTORY: 1. Cognitive dysfunction 2. Seizures. 3. Hypothyroidism. 4. Vitamin D Deficiency 5. Constipation. 6. Incontinence 7. Gastroesophageal reflux disease. 8. Osteoporosis PAST SURGICAL HISTORY: None. FAMILY HISTORY: Noncontributory. ALLERGIES: 1. Penicillin 2. Erythromycin MEDICATIONS: 1. Calcium carbonate with vitamin D. 2. Colace 100 mg. 3. Keppra 750 mg b.i.d. 4. Vitamin D 50,000 international units. 5. Omeprazole 20 mg 2 tablets daily. 6. Ranitidine b.i.d. 7. Loratadine. 8. ClearLax. 9. Hydroxyzine. 10. Xanax. 11. Vitamin A and D ointment. 12. Creon 24,000 p.o. t.i.d. REVIEW OF SYMPTOMS: Difficult to obtain due to the patient's cognitive deficiency. SOCIAL HISTORY: The patient lives in a custodial. Denies alcohol, tobacco, or illicit drug use. PHYSICAL EXAM: Temperature 36, heart rate 57, blood pressure 163/80, oxygen saturation 99% on room air.General: No acute distress. Alert with no significant orientation to person, place, time. Does appear to be quite frail with extremity contractures. HEENT: Normocephalic, atraumatic. Pupils equal, round, reactive to light. Mucous membranes moist. Neck: Trachea midline with no obvious masses. Cardiovascular: Regular rate, rhythm. Respiratory: Good respiratory effort without audible wheezing or rales. GI: Abdomen soft, nontender, and nondistended. No palpable masses. : No suprapubic tenderness. No CVA tenderness. Neurologic: The patient does not respond to questions. She moves her extremities to command. Musculoskeletal: The patient is contracted from the lower extremities. Skin: No skin lesions or rashes. LABS: White blood cells 11.6, hemoglobin 11.7, hematocrit 37 to 35.7, platelets 49,000. Sodium 140, potassium 3.9, chloride 108, bicarb 23, BUN 39, creatinine 0.4, glucose 111. IMAGING: CT scan images reviewed, which showed 2 large stone present within the left kidney without significant hydronephrosis. The patient previously only had 1 stone present within the kidney, which was approximately 1.2 cm. The patient seems to have 2 stones now of similar size adjacent to one another. The patient has significant constipation with dense impaction in the rectum as well as more proximal to this, measures almost 10 x 8 cm. The patient has 2 stones in the kidney approximately 1.7 x 1.2 and the other one measures 1.1 x 0.8 cm. CULTURES: The patient has positive blood and urine cultures for E. coli. ASSESSMENT AND PLAN: Ms. Castañeda is a 69-year-old with history of cognitive deficiency, seizures, hypothyroidism, vitamin D deficiency, chronic constipation, osteoporosis, incontinence, gastroesophageal. Consultation regarding renal stones. The patient has 2 large renal stones in the left kidney. Previously had an imaging done approximately 10 months ago which showed only 1 solitary large stone within the left kidney. Seen previously by Dr. Borja. The patient currently is on antibiotics for her urinary tract infection, was seen by Infectious Disease who is following. At this time, would recommend continued IV antibiotics. Will discuss the case with Dr. Borja regarding management of her stones. Had recommended undergo shockwave lithotripsy for stones previously. However, patient never followed up in the office and currently appears significantly frail and debilitated. The patient has 2 stones now that are quite large. May have to consider chronic stenting versus percutaneous nephrostolithotomy for removal of stones. I am not sure how well she would tolerate aggressive therapies and is currently DNR 1. We will continue to monitor from urologic standpoint. Please call with questions or concerns. cc: Rajeev Rodriguez MD MTDD
[2019-12-26] MEDS: KEPPRA 750 MG in NS 100 ML IV SCH ×2 (13:11→23:52)
--- NOTE | 2019-12-26 14:54 | PROGRESS NOTE ---
DATE: 12/26/2019 INTERVAL HISTORY: The patient did fairly well with swallow evaluation yesterday. Remains nonverbal and nonambulatory, which is her baseline. No acute events overnight. REVIEW OF SYSTEMS: Unable to obtain secondary to patient's mental status. LABORATORY DATA: WBC 14.2, hemoglobin 11.2, hematocrit 34.8, platelets 72,000. Sodium 138, potassium 4.4, BUN 37, creatinine 0.5. VITAL SIGNS: T-max 98.6 degrees, pulse 60, respirations 18, blood pressure 131/71, O2 saturation 97% on room air. PHYSICAL EXAMINATION: General: No acute distress. Vital signs: As above. HEENT: Normocephalic, atraumatic. Edentulous. Moist mucous membranes. Cardiovascular: Regular rate and rhythm. No murmurs noted. Pulmonary: Clear to auscultation bilaterally. Abdomen: Soft, nontender, nondistended. Bowel sounds positive. Extremities: Peripheral pulses intact. No clubbing or cyanosis. Neurologic: Exam limited by patient mental status. Moves all extremities spontaneously but does not really follow commands. Appears to have very poor vision, likely secondary to severe cataracts. Psychiatric: Patient awake, alert. Occasionally opens eyes and tracks spontaneously but nonverbal and follows no commands. ASSESSMENT AND PLAN: 1. Septic shock secondary to Escherichia coli urinary tract infection and bacteremia. The patient was on cefazolin, now transitioned to Rocephin as per Infectious Disease. Blood cultures repeated this morning. If those remain negative, then will need 14 days of Rocephin starting from today. Infectious Disease recommends that after that, she be placed on Keflex 250 b.i.d. more or less indefinitely. The patient required pressors at one time but has been off of that for several days. Continue antibiotics and monitor. 2. Large kidney stones. Apparently removal with lithotripsy had been recommended in the past but there was trouble with getting the patient to follow up. Urology evaluating the patient now and uncertain if lithotripsy is still an option. We will await further recommendations from Urology. May be contributing to urinary tract infection and sepsis as above. 3. Acute kidney injury, now resolved. 4. Seizure disorder. Continue home medications. 5. Constipation. Continue bowel regimen. Had good result with enema and lactulose yesterday. 6. Hypothyroidism. Continue home Synthroid. 7. Severe protein calorie malnutrition. The patient did okay with swallow study yesterday. Is actually eating fairly well for the staff here. Not entirely certain why she has been losing so much weight. The patient does have mental status issues, so may just be intermittently refusing to eat. We will see how she does here. 8. Elevated troponin, likely demand ischemia/type 2 myocardial infarction. No need for further intervention at this time. 9. Profound mental retardation. 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 Is nonambulatory, but sits in a wheelchair at her intermediate. Does not really follow commands. 10. Thrombocytopenia, mild and slightly improved. Monitor. DISPOSITION: The patient doing pretty well overall. If repeat blood cultures remain negative, then may be able to try to set up outpatient Rocephin early next week. Plan now currently is for patient to go back to her intermediate.
--- NOTE | 2019-12-26 23:09 | PROVIDER PROGRESS NOTE ---
Progress Note S: No acute overnight events. Patient having loose bowel movements. Brother and caregiver at bedside. Reports patient has had extensive negative workup for weight loss at outpatient, but has not been seen by heme/onc. Brother says that the patient eats well and completes her meals. She does have postprandial loose stools. [facility] the [facility] and is constantly moving. O: Last Vital Signs Temp 99.0 F 12/26/19 20:00 Pulse 103 H 12/26/19 20:00 Resp 23 12/26/19 20:00 BP 165/82 12/26/19 20:00 Pulse Ox 93 L 12/26/19 20:00 Height 5 ft Weight 64 lb 5 oz GEN: cachexia, agitated HEENT: anicteric, MMM NECK: supple, no JVD CV: tachycardic, regular PULM: CTAB, no wheezing ABD: soft NT/ND EXT: contracted, no edema NEURO: deferred LABS: 12/26/19 12/26/19 06:09 06:09 WBC 14.25 H Hgb 11.2 L Plt Count 72 L D Sodium 138 Potassium 4.4 Chloride 104 Carbon Dioxide 24 L BUN 37 H Creatinine 0.5 Glucose 109 H Calculated Osmolality 285 Calcium 8.4 L Albumin 2.4 L A/P Ms. Castañeda is a 69 year old woman with MR, paraplegia, seizure d/o, chronic constipation who [facility] from [facility] with [facility] found to have E coli bacteremia and UTI. GI was consulted for cachexia from unclear etiology. Per caregiver and brother, patient does not have dysphagia and eats 3 meals per day with assist. She does have 3-4 loose stools per day while on laxatives. She had EGD/colonoscopy in 03/[address] Chester that was only revealing for diverticulosis. EGD was normal. [facility] CT on admission was unrevealing for etiology of weight loss. TSH, LFTs unrevealing. She has mild normocytic anemia. Her sister had leukemia. She has not been seen by oncology per report. Of note, brother does not want patient to have PEG tube. Will order stool studies to check for malabsorption as well as CRP, ESR, TTG, IGA, and anemia labs. Agree with palliative care involvement; appreciate recs. Will plan for calorie counts. ?hypermetabolic state # Cachexia # Sepsis # E coli bacteremia # E coli UTI # GABRIEL # Thrombocytopenia # Seizure d/o # MR Will follow with you. Please call with questions.
[2019-12-27] MEDS: LOPRESSOR IV SCH ×4 (01:37→20:05)
[2019-12-27] MEDS: SYNTHROID IV SCH ×2 (05:56→06:00)
[2019-12-27 06:58] LABS: FERRITIN 263 ng/mL (13-150)
[2019-12-27 07:31] LABS: C REACTIVE PROT QUANT 34.01 mg/L (0.00-5.00)
[2019-12-27] MEDS: PROTONIX IV SCH ×2 (08:28→09:07)
[2019-12-27] MEDS: LACTULOSE PO SCH ×2 (08:29→20:05)
[2019-12-27] MEDS: ROCEPHIN 1 GM in NS 50 ML IV SCH ×2 (08:29→09:07)
[2019-12-27] MEDS: CLINIMIX E 4.25%-5% SOLUTION 1,000 ML IV SCH ×3 (09:43→23:07)
[2019-12-27] MEDS: FOLIC ACID PO SCH (12:43)
[2019-12-27] MEDS: KEPPRA 750 MG in NS 100 ML IV SCH ×2 (12:43→23:00)
--- NOTE | 2019-12-27 14:36 | INFECTIOUS DISEASE PROGRESS NO ---
DATE: 12/27/2019 PRESENT ILLNESS: The patient has an E coli urinary tract infection with an associated bacteremia. She is predisposed to get this infection because she has 2 large left renal calculi present. MEDICATIONS: The patient currently is receiving Rocephin. This is the second day of the patient receiving Rocephin. PHYSICAL EXAMINATION: Vital Signs: Temperature is 99.2 degrees, pulse 95, respirations 17, blood pressure is 153/87. General: This is a cachectic, elderly female. She today seemed much more calm than when I saw her 2 days ago. Head, eyes, ears, nose and throat: No drainage was noted from the nose or ears. Neck: She did not seem to have any pain when she turned her neck. Lungs: Clear to auscultation. Cardiovascular.: Heart rate is regular. Abdomen: Soft and not tender. Neurologic: The patient is moving much less. She does not respond to verbal stimuli and she did not seem to be bothered by when we examined her like she was most of the time, according to the biztalk software developer of the patient. LAB AND X-RAY: The patient's CBC shows a white count of 14,250, hemoglobin 11.2 and platelet count is 72,000. As mentioned above, both urine and blood are growing E coli. ASSESSMENT AND PLAN: For now I am going to continue Rocephin. Repeat blood cultures have been drawn. Dr. Rodriguez saw the patient and he is going to determine what is to be done about the patient's 2 large renal calculi. Also, repeat blood cultures have been drawn. COMORBIDITIES: The patient is cachectic and appears malnourished. She has 2 large renal calculi in the left kidney. cc: Sushil Grigsby MD
--- NOTE | 2019-12-27 15:10 | PROGRESS NOTE ---
DATE: 12/27/2019 INTERVAL HISTORY: The patient is approximately stable. Blood pressure remains good. Mental status remains baseline, which is awake and fairly alert, but nonverbal, nonambulatory. No acute events overnight. Repeat blood cultures remain negative so far. REVIEW OF SYSTEMS: Unable to obtain secondary to patient mental status. LABORATORY DATA: Iron 34, TIBC 189, ferritin 63. OBJECTIVE: Vital Signs: T-max 99 degrees, pulse 95, respirations 17, blood pressure 156/78, O2 saturation 96% on room air. General: No acute distress. HEENT: Normocephalic, atraumatic. Edentulous. Moist mucous membranes. Cardiovascular: Regular rate and rhythm. No murmurs noted. Pulmonary: Clear to auscultation bilaterally. Abdomen: Soft, nontender, nondistended. Bowel sounds positive. Extremities: Peripheral pulses intact. No clubbing or cyanosis. Neurologic: Remains limited by patient's mental status, but no new focal deficits. She moves all extremities, but does not follow commands, is nonverbal, which is baseline. Poor vision secondary to visibly severe cataracts. Psychiatric: The patient is awake, alert, occasionally tracks to all quadrants, but nonverbal and does not really follow commands. ASSESSMENT AND PLAN: 1. Septic shock secondary to Escherichia coli urinary tract infection and bacteremia. Shock remains resolved on Rocephin as per Infectious Diseases. Will need a 14-day course, starting from 12/26/2019, assuming that set of blood cultures remains negative. There is concern that her large, nonobstructing kidney stones may be harboring infection, and further Urology evaluation for that is pending. Infectious Diseases recommends that after her 2-week course of Rocephin, she be placed on low-dose Keflex 250 twice daily more or less indefinitely. Continue monitoring. If her kidney stone issue can be resolved and she can be set up for outpatient antibiotics, then she could theoretically be discharged to finish her course of intravenous antibiotics outpatient, as early as tomorrow, assuming her blood cultures remain negative, but that seems unlikely at this point. 2. Large kidney stones. Apparently, removal with lithotripsy has been discussed in the past, but there was an issue with followup. Urology has re-evaluated the patient, and is uncertain of their current size, if they will be amenable to lithotripsy or not. Further Urology recommendations pending. 3. Acute kidney injury, resolved. 4. Seizure disorder. Continue home medications. 5. Constipation. Continue bowel regimen. Doing well. 6. Hypothyroidism. Continue Synthroid. 7. Severe protein calorie malnutrition. The patient did pretty well with swallow study 2 days ago. Continues to eat pretty well here. A little bit uncertain as to what is causing her weight loss. She does have lifelong mental status issues. Uncertain if she may be intermittently refusing food or if there is another issue, but her body mass index is 12.6, so she is definitely malnourished. Will see how she does while she is here. 8. Elevated troponin, demand ischemia/type 2 myocardial infarction. Troponin trended down. Almost certainly related to shock, and resolved with treatment of that. 9. Profound mental retardation. Patient reportedly with traumatic brain injury as an , has been nonverbal her entire life, nonambulatory, but sits in wheelchair. Does not really follow commands, but will assist a little bit with feeding. 10. Thrombocytopenia, mild. Monitor. 11. Disposition. Ideally would go back to her skilled nursing with intravenous antibiotics, but the issue of her kidney stones has to be settled first, and there is some concern about how well she may have been being fed at the skilled nursing given her severe protein calorie malnutrition. Also, not entirely certain they will be able to do her antibiotics there, so there are several barriers to discharge currently. MICHAEL
[2019-12-27] MEDS: ATIVAN IV PRN (21:47)
--- NOTE | 2019-12-28 00:39 | PROVIDER PROGRESS NOTE ---
Progress Note Progress Note 12/27/2019 S: No acute overnight events. Patient eating well. +BMs. No rectal bleeding, vomiting. No BM today. O: Last Vital Signs Temp 98.4 F 12/28/19 00:00 Pulse 96 H 12/28/19 00:00 Resp 16 12/28/19 00:00 BP 123/60 12/28/19 00:00 Pulse Ox 99 12/28/19 00:00 Height 5 ft Weight 64 lb 6 oz GEN: cachexia, agitated HEENT: anicteric, MMM NECK: supple, no JVD CV: tachycardic, regular PULM: CTAB, no wheezing ABD: soft NT/ND EXT: contracted, no edema NEURO: deferred LABS: 12/27/19 12/27/19 12/27/19 05:30 05:30 05:30 ESR Iron 34 L TIBC 189 % Saturation 18 Unsat Iron Binding 155 Ferritin 263 H C-Reactive Prot, Quant 34.01 H Vitamin B12 1752 H Folate 6.9 L 12/27/19 05:30 ESR 60 H Iron TIBC % Saturation Unsat Iron Binding Ferritin C-Reactive Prot, Quant Vitamin B12 Folate A/P Ms. Castañeda is a 69 year old woman with MR, paraplegia, seizure d/o, chronic constipation who presented from [facility] with AMS found to have E coli bacteremia and UTI. GI was consulted for cachexia from unclear etiology. Per caregiver and brother, patient does not have dysphagia and eats 3 meals per day with assist. She does have 3-4 loose stools per day while on laxatives. She had EGD/colonoscopy in 03/[address] Chester that was only revealing for diverticulosis. EGD was normal. [facility] CT on admission was unrevealing for etiology of weight loss. TSH, LFTs unrevealing. She has mild normocytic anemia with folate deficiency and AOCD. Of note, brother does not want patient to have PEG tube. Stool studies are pending; however, patient is not having diarrhea. Inflammatory markers are elevated. She is eating well while being in the hospital. # Cachexia # Sepsis # E coli bacteremia # E coli UTI # GABRIEL # Thrombocytopenia # Seizure d/o # MR # Anemia of chronic disease. # Folate deficiency Will follow with you. Please call with questions.
[2019-12-28] MEDS: LOPRESSOR IV SCH ×5 (01:35→21:10)
[2019-12-28] MEDS: CLINIMIX E 4.25%-5% SOLUTION 1,000 ML IV SCH ×3 (05:36→21:08)
[2019-12-28] MEDS: SYNTHROID IV SCH ×2 (05:54→06:00)
[2019-12-28 06:40] LABS: BASO# 0.03 X1000 (0.0-0.2); BASO% 0.3 % (0.0-0.8); EOS# 0.08 X1000 (0.0-0.7); EOS% 0.8 % (0.0-10.0); HEMATOCRIT 31.4 % (37.0-47.0); HEMOGLOBIN 9.8 g/dL (12.0-16.0); IMM GRAN# 0.64 X1000 (0.0-0.04); IMM GRAN% 6.1 % (0.0-0.5); LYMPH# 1.56 X1000 (1.2-3.4); LYMPH% 14.9 % (20.5-51.1); MCHC 31.2 g/dL (33-37); MCV 99.4 FL (81-99); MONO# 0.53 X1000 (0.11-0.59); MPV 11.5 FL (7.4-10.4); NEUT# 7.66 X1000 (1.4-6.5); NEUT% 72.9 % (42.2-75.2); PLT 222 X1000 (130-400); RBC 3.16 XMIL (4.2-5.4); RDW 13.6 % (11.5-14.5)
[2019-12-28 06:43] LABS: AGAP 9; BUN 29 mg/dL (8-22); CALCIUM 8.4 mg/dL (8.8-10.2); CHLORIDE 105 mmol/L (98-107); COSMO 280; CREATININE 0.4 mg/dL (0.5-0.9); ESTIMATED GFR > 60; GLUCOSE 104 mg/dL (70-104); POTASSIUM 4.5 mmol/L (3.5-5.1); SODIUM 137 mmol/L (136-145); TCO2 23 mmol/L (25-35)
[2019-12-28] MEDS: ROCEPHIN 1 GM in NS 50 ML IV SCH ×2 (08:47→09:36)
[2019-12-28] MEDS: FOLIC ACID PO SCH (08:48)
[2019-12-28] MEDS: LACTULOSE PO SCH ×2 (08:48→21:12)
[2019-12-28] MEDS: PROTONIX IV SCH ×2 (08:48→09:36)
--- NOTE | 2019-12-28 10:39 | INFECTIOUS DISEASE PROGRESS NO ---
DATE: 12/28/2019 PRESENT ILLNESS: The patient has an Escherichia coli urinary tract infection with an associated bacteremia. Unfortunately, she has 2 large left renal calculi present, which predisposes her to get a urinary tract infection. MEDICATIONS: This is day 2 of treatment with Rocephin with day 1 being the first day that the repeat blood cultures were sterile. PHYSICAL EXAMINATION: Vital Signs: Temperature is 97.8 degrees pulse 132, respirations 18, blood pressure 119/53. General: This is a cachectic, elderly female. She was very combative today when the nurse assistants tried to give her a bath. Head/eyes/ears/nose/throat: No drainage was noted from the nose or ears. Neck: She did not seem to have any pain when she moved her neck. Lungs: Clear to auscultation. Cardiovascular: Heart rate is regular. Abdomen: Soft and not tender. Neurologic: The patient is pretty much thrashing around in bed. She is not responding to verbal stimuli. She does not have a tremor. LAB AND X-RAY: CBC shows a white count of 10,500, hemoglobin 9.8, platelet count 222,000. Creatinine is 0.4. GFR is greater than 60. There is no new radiographic study. ASSESSMENT AND PLAN: The patient has Escherichia coli urinary tract infection with an associated bacteremia. I plan to continue Rocephin for a total of 14 days of treatment with day #1 being the first day the repeat blood cultures are sterile. Dr. Rodriguez has been consulted to determine how he is going to manage the patient's renal calculi. COMORBIDITIES: The patient is cachectic and she has 2 large renal calculi in her left kidney. cc: Sushil Grigsby MD
[2019-12-28] MEDS: ATIVAN IV PRN (12:06)
--- NOTE | 2019-12-28 12:12 | GASTROENTEROLOGY PROGRESS NOTE ---
DATE: 12/28/2019 SUBJECTIVE: Ms. Castañeda is a 69-year-old, female with Caregivers from the [facility] are at the bedside. The patient has been constantly moving her head and nitesh her legs. The patient is mentally challenged.. She is extremely thin. As per the caregivers, she is tolerating her pureed diet well. They have denied her having any nausea, vomiting or any bowel movements today.. OBJECTIVE: Vital Signs: Temperature 97.6 degrees, pulse is 94, respirations 16, blood pressure 127/93, oxygen saturation 97% on room air. The patient's weight is 61 pounds. BMI is 12.0 kg/m2. General: The patient is hyperactive, cachectic, mentally challenged. Unable to assess patient. HEENT: Pale conjunctivae. No icterus. PERRL. Neck: Supple. Lungs: Clear to auscultation. Cardiovascular: Patient is tachycardic. Abdomen: Soft, nontender, nondistended. Extremities: Contracted. No edema. No cyanosis. No clubbing. Neurologic: Unable to assess patient due to MRRaphael IMPRESSION AND PLAN: 1. Paraplegia. 2. Mental retardation. 3. Urinary tract infection. 4. Cachexia. 5. Sepsis. 6. Acute kidney injury. 7. Anemia. 8. Diarrhea. PLAN: Ms. Castañeda is a 69-year-old, female with history of mental retardation, paraplegia, seizures. GI is following her for her dysphagia and cachexia. Her brother, who has the power of assistant city attorney does not want her to have the PEG tube. He has mentioned that the patient eats 3 meals per day and does not have dysphagia. Patient is currently on a pureed diet and is tolerating her diet well. We have ordered stools studies for her diarrhea. Patient has E-coli UTI with bacteremia, per ID she is on Rocephin. She is receiving clinimix @ 100 mls/hr for her nutrition. Patient is on PPI daily. We will continue to monitor the patient, provide supportive care and follow the plan of care per PCP. This plan was discussed with Dr. Lares. Please call us for any further questions or concerns. Dictated by RAAD Winter for Dima Lares MD cc: Dima Lares MD I have seen and examined the patient myself and I agree with the above plan of care. Please call us with any further questions or concerns. MICHAEL
[2019-12-28] MEDS: KEPPRA 750 MG in NS 100 ML IV SCH (12:47)
--- NOTE | 2019-12-28 14:13 | PROGRESS NOTE ---
DATE: 12/28/2019 SUBJECTIVE: The patient has no major issues. She is at baseline. OBJECTIVE: Vital Signs: Blood pressure 127/93, heart rate 94, respiratory rate is 16, temperature 97.6 degrees. Cardiovascular: Regular rate and rhythm. Pulmonary: Bilateral breath sounds clear to auscultation. Gastrointestinal: Soft, nontender, nondistended. Bowel sounds are positive. LABORATORY DATA: White count 10, hemoglobin and hematocrit 9 and 31, platelets 222,000. BUN and creatinine 29 and 0.4. PROBLEM LIST: 1. Escherichia coli septic shock that is improved. She is now in her kind of rehabilitation phase/recovery phase. Her blood cultures are negative so I think she probably can get her PICC line put in. They have been negative for 2 days and we will continue to follow. 2. Bilateral renal calculi, which is likely the source of infection, but we are waiting on urology input as far as that is concerned. 3. Acute kidney injury is stable. 4. Severe calorie malnutrition, unclear exactly what is causing her weight loss. She has had CT scans which she had a stool impaction. There must be some sort of malabsorption. Gastroenterology is following and has ordered multiple tests looking for that. Her brother specifically refused PEG tube, so we will continue to monitor. She is on Clinimix and will continue to follow. DISPOSITION: I will have to decide about home IV therapy if that is an option. Our options are really home IV with a custodial, which they may refuse to participate and I am not sure what is available at the custodial from that standpoint or she will have to complete antibiotics as an inpatient or she will have to consider SNF for rehab until her antibiotics are completed. I discussed bringing her in daily for antibiotics and it seemed like because of her behavioral issues that would be more troubling so we may have to look at placement if that is an option, but I am not sure if that is even an option from that standpoint. In any case, the patient is otherwise stable. She is a bit folate deficient. She is a bit iron deficient. We will continue to monitor her closely. cc: Franko Venegas MD
[2019-12-28] MEDS ORDERED: NS 250 ML ONE (14:28)
[2019-12-28 16:45] LABS: INR 1.05; PROTIME 13.9 Seconds (11.0-16.0)
[2019-12-28] MEDS: KEPPRA PO SCH (21:12)
[2019-12-28] MEDS: XANAX PO SCH (21:12)
[2019-12-29] MEDS: LOPRESSOR IV SCH ×2 (01:42→10:04)
[2019-12-29] MEDS: CLINIMIX E 4.25%-5% SOLUTION 1,000 ML IV SCH ×2 (06:48→16:47)
[2019-12-29] MEDS: SYNTHROID IV SCH (06:49)
[2019-12-29] MEDS: XANAX PO SCH ×3 (06:54→21:30)
[2019-12-29 07:47] LABS: BASO# 0.02 X1000 (0.0-0.2); BASO% 0.2 % (0.0-0.8); EOS# 0.05 X1000 (0.0-0.7); EOS% 0.6 % (0.0-10.0); HEMATOCRIT 30.8 % (37.0-47.0); HEMOGLOBIN 9.6 g/dL (12.0-16.0); IMM GRAN# 0.45 X1000 (0.0-0.04); IMM GRAN% 5.3 % (0.0-0.5); LYMPH# 1.33 X1000 (1.2-3.4); LYMPH% 15.7 % (20.5-51.1); MCH 31.2 PG (27-31); MCHC 31.2 g/dL (33-37); MONO# 0.48 X1000 (0.11-0.59); MONO% 5.7 % (1.7-9.3); MPV 10.8 FL (7.4-10.4); NEUT# 6.13 X1000 (1.4-6.5); NEUT% 72.5 % (42.2-75.2); PLT 316 X1000 (130-400); RBC 3.08 XMIL (4.2-5.4); RDW 13.6 % (11.5-14.5); WBC 8.46 X1000 (4.8-10.8)
[2019-12-29 08:09] LABS: AGAP 8; BUN 26 mg/dL (8-22); CALCIUM 8.3 mg/dL (8.8-10.2); CHLORIDE 104 mmol/L (98-107); COSMO 281; CREATININE 0.3 mg/dL (0.5-0.9); ESTIMATED GFR > 60; GLUCOSE 111 mg/dL (70-104); POTASSIUM 4.6 mmol/L (3.5-5.1); SODIUM 138 mmol/L (136-145); TCO2 26 mmol/L (25-35)
[2019-12-29 08:59] LABS: BANDS 4 % (0-1); HYPOCHROM 1+; LYMPHS 26 % (21-51); MONO 4 % (1-9); SEGS 66 % (42-75)
[2019-12-29] MEDS: ROCEPHIN 1 GM in NS 50 ML IV SCH (09:41)
[2019-12-29] MEDS: KEPPRA PO SCH ×2 (09:41→21:30)
[2019-12-29] MEDS: LACTULOSE PO SCH (09:41)
[2019-12-29] MEDS: FOLIC ACID PO SCH (09:41)
[2019-12-29] MEDS: SODIUM CHLORIDE 0.9% INJ SCH (09:53)
[2019-12-29] MEDS: PROTONIX IV SCH (09:53)
--- NOTE | 2019-12-29 11:11 | GASTROENTEROLOGY PROGRESS NOTE ---
DATE: 12/29/2019 SUBJECTIVE: Ms. Castañeda is a 69-year-old, female, [facility] at the bedside along with the nursing staff. The patient was very quiet today. She was feeling sleepy. The patient is currently on a pureed diet and she has been tolerating her diet fairly well. The patient has not had a bowel movement today. OBJECTIVE: Vital Signs: Temperature 97.9 degrees, pulse is 117, respirations 20, blood pressure 119/54, oxygen saturation 98% on room air. The patient's weight is 62 pounds. BMI is 12.2 kg/m2. General: The patient is sleepy, cachectic, and mentally challenged, unable to assess. HEENT: Pale conjunctivae. No icterus. PERRL. Neck: Supple. Lungs: Clear to auscultation. Cardiovascular: Patient is tachycardic. Abdomen: Soft, nontender, nondistended. Extremities: Contracted. No edema. No cyanosis. No clubbing. Neurologic: Unable to assess patient due to MR. IMPRESSION AND PLAN: 1. Cachexia. 2. Sepsis. 3. Escherichia coli bacteremia. 4. UTI 5. Acute kidney injury. 6. Thrombocytopenia. 7. Seizure disorder. 8. Mental retardation. 9. Anemia of chronic disease. 10. Folate deficiency. PLAN: Ms. Castañeda is a 69-year-old, female with mental retardation, paraplegia, seizures, chronic constipation, who came [facility] with altered mental status. GI is following her for dysphagia and cachexia, etiology is unclear. As per the brother, he does not want her to have a PEG tube and he has mentioned that patient is able to eat 3 meals. She is currently on a pureed diet and per caregivers, she is able to tolerate her diet fairly well. The patient is receiving Clinimix at 100 mL per hour for her nutrition. She is on Protonix 40 mg IV daily. The patient is also receiving antibiotic, Rocephin, for her UTI and E. coli with bacteremia. For her bowel regimen, she is on MiraLAX 17 grams p.o. daily. We have discontinued her lactulose. We will continue to monitor the patient and follow the plan of care per PCP. This plan was discussed with Dr. Hernandez. Please call us for any further questions or concerns. Dictated by RAAD Winter for MD Gus Osullivan#: [phone] Physician Attestation I have seen and examined the patient. I have discussed and reviewed the note by Chelsea SHANKAR and agree with findings and plan as documented. Patient had negative EGD/colonoscopy last year. MTDD
--- NOTE | 2019-12-29 14:02 | INFECTIOUS DISEASE PROGRESS NO ---
DATE: 12/29/2019 PRESENT ILLNESS: The patient has an Escherichia coli urinary tract infection with an associated bacteremia. Unfortunately, she has 2 large left renal calculi, which are most likely infected and could be the cause of her urinary tract infection. MEDICATIONS: This is the third day of treatment with Rocephin with day 1 being the first day that the patient's repeat blood cultures were sterile. PHYSICAL EXAMINATION: It is extremely difficult to examine the patient because she gets somewhat combative. Vital Signs: Temperature is 97.9 degrees pulse 117, respirations 20, blood pressure 119/54. General: This is a cachectic elderly female. Today, she is not nearly as combative as she was yesterday. Head/eyes/ears/nose/throat: No drainage was noted from the nose or ears. Neck: The patient moved her head and it did not seem to cause her any pain in her neck. Lungs: Clear to auscultation. Cardiovascular: Heart rate is regular. Abdomen: Soft and not tender. Neurologic: The patient at some times was fairly still and at other times she starts thrashing around her bed. She does not respond to verbal stimuli. She does not have a tremor. Bones, Joints, Muscles: The patient has a PICC in her arm. There is a large Coban around the PICC site. The patient has mild muscle atrophy. LABORATORY AND X-RAY: CBC shows a white count of 8460, hemoglobin 9.6, and platelet count 316,000. Creatinine is 0.3. GFR is greater than 60. ASSESSMENT AND PLAN: Patient has an Escherichia coli urinary tract infection with an associated bacteremia. I plan to treat the patient for Rocephin for a total of 14 days. This is day 3 of treatment and the patient will need 11 more days of antibiotics. I have talked to Dr. Borja and he is going to see the patient regarding what to do about her renal calculi. COMORBIDITIES: The patient is cachectic and she has 2 large renal calculi in her left kidney. She also has constipation to an extended amount. She does have loose stools but this maybe that is just she is getting overflow diarrhea and the main problem mainly the constipation is still present. cc: Sushil Grigsby MD
--- NOTE | 2019-12-29 15:09 | PROGRESS NOTE ---
DATE: 12/29/2019 SUBJECTIVE: Patient has no major complaints. She has encephalopathy related to cerebral palsy issues. OBJECTIVE: Blood pressure 104/46, heart rate 117, respiratory rate 20, temperature 97.9 degrees, and 98% on room air.Cardiovascular: Regular rate and rhythm. Pulmonary: Bilateral breath sounds. Clear to auscultation. GI: Soft. Nontender and nondistended. Bowel sounds are positive. PROBLEM LIST: 1. She has an E. Coli bacteremia. She seems to be doing okay. Blood cultures are stable. The plan is for her to go home on IV antibiotics per Dr. Grigsby for a total of 2 weeks. 2. Cachexia. Family does not want to pursue PEG tube. Her treatment is stable. Plan will be to follow up with GI for further management, but at this point, unclear why she has cachexia. Still waiting on several labs to come back to evaluate for possible malabsorption type syndrome. 3. Acute kidney injury that is stable. 4. Bilateral renal calculi. Urology is following. DISPOSITION: I think the plan would be she will go home at this point tomorrow if she is stable so we will see how she is doing, but I anticipate discharge tomorrow with home IV. Apparently, she is going to come in for treatment as an outpatient for daily infusions. cc: Franko Venegas MD
[2019-12-29] MEDS: LOPRESSOR PO SCH (17:26)
[2019-12-29] MEDS ORDERED: AMBIEN PO SCH (21:00)
[2019-12-30] MEDS: CLINIMIX E 4.25%-5% SOLUTION 1,000 ML IV SCH ×2 (03:33→13:45)
[2019-12-30] MEDS: PREVACID SOLUTAB PO SCH (06:18)
[2019-12-30] MEDS: XANAX PO SCH ×3 (06:19→23:26)
[2019-12-30] MEDS: LOPRESSOR PO SCH ×3 (09:42→17:19)
[2019-12-30] MEDS: FOLIC ACID PO SCH (09:42)
[2019-12-30] MEDS: ROCEPHIN 1 GM in NS 50 ML IV SCH (09:43)
[2019-12-30] MEDS: MIRALAX PO SCH (09:43)
[2019-12-30] MEDS: KEPPRA PO SCH ×2 (09:43→23:26)
--- NOTE | 2019-12-30 11:40 | GASTROENTEROLOGY PROGRESS NOTE ---
DATE: 12/30/2019 SUBJECTIVE: Ms. Castañeda is a 69-year-old, female who was sleeping. It was hard to wake her up this morning. Caregiver from the half-way is at the bedside, mentioning that she was not able to wake her up to give her breakfast. Unable to assess patient. OBJECTIVE: Vital Signs: Temperature 97.9 degrees, pulse 111, respirations 16, blood pressure is 145/69, oxygen saturation 98% on room air. The patient's weight is 61 pounds, BMI is 12.0 kg/m2. General: Patient is sleeping, unable to assess her. HEENT: Pale conjunctivae. No icterus. PERRL. Neck: Supple. Lungs: Clear to auscultation. Cardiovascular: Patient is tachycardic. Abdomen: Soft, nontender, nondistended. Active bowel sounds heard in all 4 quadrants. Extremities: Contracted. No clubbing, no cyanosis, no edema. Pedal pulses 2+ present bilaterally. Neurologic: Unable to assess patient. Laboratory Data: Hematology is from 12/29/2019. WBCs 8.46, RBCs 3.08, hemoglobin 9.6, hematocrit is 30.8, platelet count is 316,000. The patient does not have any new chemistries. Her chemistries are from 12/29/2019. Sodium is 138, potassium 4.6, chloride 104, carbon dioxide 26, anion gap 8, BUN 26, creatinine 0.3, glucose 111, calcium 8.3. IMPRESSION AND PLAN: 1. Cachexia. 2. Sepsis. 3. Escherichia coli bacteremia. 4. Urinary tract infection. 5. Acute kidney injury. 6. Thrombocytopenia. 7. Seizure. 8. Mental retardation. 9. Anemia of chronic disease. PLAN: Ms. Castañeda is a 69-year-old, female with a history of mental retardation, paraplegia and chronic constipation, who has come from the half-way with altered mental status. GI is following her for her dysphagia and cachexia of etiology that is unclear. The patient is currently on a pureed diet. As per the half-way caregivers, the patient does tolerate her diet. The patient's brother does not want her to have a PEG tube with the reasoning that the patient is able to tolerate her diet and she usually has 3 meals in a day. The patient is currently on IV Clinimix at 100 mL per hour for her nutrition. She is on antibiotic, Rocephin. For her bowel regimen, she is on MiraLAX 17 g daily. Patient has bilateral renal calculi, urology is following her. The plan as per the PCP is to send her to the half-way and continue her with the IV antibiotics as an outpatient. We will continue to monitor the patient and provide supportive care. This plan was discussed with Dr. Hernandez. Please call us for any further questions or concerns. Dictated by RAAD Winter for Wai Hernandez MD Physician Attestation I have seen and examined the patient. I have discussed and reviewed the note by Chelsea SHANKAR and agree with findings and plan as documented. Patient had negative EGD and colonoscopy in 03/2019. No diarrhea. She is tolerating diet here and eating well. ?patient is not getting adequate access to food in half-way, ?occult malignancy, ?neurologic/rheumatologic disorder. No indication for PEG given adequate PO intake. MTDD
--- NOTE | 2019-12-30 12:55 | INFECTIOUS DISEASE PROGRESS NO ---
DATE: 12/30/2019 PRESENT ILLNESS: The patient has an Escherichia coli urinary tract infection with an associated bacteremia. The patient also has 2 large left renal calculi. MEDICATIONS: The patient is being treated with Rocephin. This is day 4 of treatment with day 1 being the first day that the patient's repeat blood cultures were sterile. PHYSICAL EXAMINATION: Vital Signs: Temperature is 98 degrees, pulse 98, respirations 15, blood pressure 133/60. General: This is a cachectic appearing, elderly female. Today, she was much more calmer than she was yesterday. Head, Eyes, Ears, Nose and Throat: No drainage was noted from the nose or ears. I did not see any white patches in her mouth. Neck: She did not seem to have any pain when she turned her neck. Lungs: Clear to auscultation. Cardiovascular: Heart rate is regular. Abdomen: Soft and nontender. Neurologic: For the most part, the patient was lying still. Occasionally, she would move her arms or legs. She did not respond to verbal stimuli. Extremities: The patient has a PICC in her left arm. The PICC site is covered by [employer]. LABS AND X-RAYS: There is no new radiology or lab today. ASSESSMENT AND PLAN: Patient has an Escherichia coli urinary tract infection with an associated bacteremia. I plan on treating the patient with Rocephin for a total of 14 days with day 1 being the first day the repeat blood cultures are sterile. This is day 4 of treatment, and patient will need 10 more days of antibiotics. Dr. Borja is going to stop by and see the patient regarding her calculi. COMORBIDITIES: The patient is cachectic. She has renal calculi. She also has severe constipation. She has had very severe brain damage. cc: Sushil Grigsby MD
--- NOTE | 2019-12-30 15:46 | PROGRESS NOTE ---
DATE: 12/30/2019 SUBJECTIVE: Patient has no major complaints. OBJECTIVE: Blood pressure 119/47, heart rate of 116, respiratory 15, temperature 98 degrees, 96% on room air.Cardiovascular: Regular rate and rhythm. Pulmonary: Bilateral breath sounds clear to auscultation. GI: Soft, nontender, nondistended. Bowel sounds are positive. LABORATORY DATA: White count: I do not have any new data today. PROBLEM LIST: 1. Escherichia coli bacteremia. She is on intravenous Rocephin for a total of 2 weeks. Technically this is day 5 so we will continue to follow. Anticipate discharge tomorrow. 2. Large bilateral renal calculi. Urology is planning for extracorporeal shock wave lithotripsy tomorrow and then I imagine she should be able to go home. 3. Protein calorie malnutrition. Workup is in progress. She will need to follow closely with GI. DISPOSITION: Anticipate discharge tomorrow if stable. cc: Franko Venegas MD
[2019-12-30] MEDS: LACTULOSE PO SCH (23:26)
[2019-12-31] MEDS: CLINIMIX E 4.25%-5% SOLUTION 1,000 ML IV SCH ×3 (05:22→21:29)
[2019-12-31] MEDS: XANAX PO SCH ×3 (06:59→21:29)
[2019-12-31] MEDS: PREVACID SOLUTAB PO SCH (06:59)
[2019-12-31] MEDS: ROCEPHIN 1 GM in NS 50 ML IV SCH (09:18)
[2019-12-31] MEDS: LOPRESSOR PO SCH ×3 (09:24→16:10)
--- NOTE | 2019-12-31 12:10 | GASTROENTEROLOGY PROGRESS NOTE ---
DATE: 12/31/2019 SUBJECTIVE: Ms. Castañeda is a 69-year-old, female, who was sleeping this morning. Unable to arouse patient Caregiver from the group form is also at the bedside, and has mentioned that she is having a hard time waking her up. Unable to assess the patient. Patient is NPO for the extracorporeal shock wave lithotripsy procedure. OBJECTIVE: Vital Signs: Temperature 97.6 degrees, pulse 116, respirations 16, blood pressure 86/48, oxygen saturation 98% on room air. The patient's weight is 62 pounds, BMI is 12.1 kg/m2. General: The patient is sleeping, unable to assess her. HEENT: Pale conjunctivae. No icterus. PERRL. Neck: Supple. Lungs: Clear to auscultation. Cardiovascular: The patient is tachycardic. Abdomen: Soft, nontender, nondistended. Active bowel sounds heard in all 4 quadrants. Extremities: Contracted. No clubbing, no cyanosis, no edema. Pedal pulses 2+ present bilaterally. Neurologic: Unable to assess the patient. LABORATORY DATA: Hematology is from 12/29/2019. WBC is 8.46, RBC 3.08, hemoglobin 9.6, hematocrit is 30.8, platelet count is 316,000. The patient's chemistries are from 12/29/2019. Sodium 138, potassium 4.6, chloride 104, carbon dioxide 26, anion gap 8, BUN 26, creatinine 0.3, glucose 111, calcium 8.3. IMPRESSION AND PLAN: Cachexia Sepsis UTI Seizure disorder Mental retardation Anemia PLAN: Ms. Castañeda is a 63-year-old, female with a history of mental retardation, paraplegia, chronic constipation. The patient has come from the long term with altered mental status. GI is following her for her dysphagia and cachexia of etiology that is unclear. The patient is currently n.p.o. today. She will be having extracorporeal shock wave lithotripsy done by Dr. Borja. After the procedure, as per PCP the plan is to send the patient to the long term, and she will be doing an outpatient antibiotic treatment. We do not plan to put a PEG tube since her brother has refused. We will continue to monitor the patient and follow her up as an outpatient in 4 to 6 weeks. This plan has been discussed with Dr. Lares. Please call us for any further questions or concerns. Dictated by RAAD Winter for Dima Lares MD cc: Dima Lares MD I have seen and examined the patient myself and I agree with the above plan of care. Please call us with any questions or concerns. MTDD
[2019-12-31] MEDS ORDERED: DIPRIVAN 1% ONE (13:52)
[2019-12-31] MEDS ORDERED: ZOFRAN ONE (13:58)
[2019-12-31] MEDS ORDERED: DECADRON ONE (13:58)
[2019-12-31] MEDS ORDERED: MANNITOL ONE (13:58)
--- NOTE | 2019-12-31 14:44 | INFECTIOUS DISEASE PROGRESS NO ---
DATE: 12/31/2019 PRESENT ILLNESS: The patient has Escherichia coli urinary tract infection with an associated bacteremia. She has 2 large left renal calculi. MEDICATIONS: This is day 5 of treatment with Rocephin. PHYSICAL EXAMINATION: Vital Signs: Temperature is 97.7 degrees, pulse 121, respirations 17, blood pressure 114/41. General: This is a cachectic elderly female. She appears to be in no acute distress. Head/eyes/ears/nose/throat: I do not see any drainage coming from her nose or ears. I could not get a good look into her mouth however. Neck: She did not seem to have any pain when she turned her neck. Lungs: Clear to auscultation. Cardiovascular: Heart rate was regular and rapid. Abdomen: Soft and nontender. Extremities: Patient has a PICC in the left arm in the site is not erythematous or purulent. Neurologic: The patient was thrashing around bed more today than yesterday. There is no tremor. LAB AND X-RAY: There is no lab for today and there is no radiographic study. Repeat blood culture drawn 2 days ago is negative. Stool for Clostridium difficile and ova and parasites are pending. ASSESSMENT AND PLAN: Patient has an Escherichia coli urinary tract infection with an associated bacteremia. This is day 5 of treatment with Rocephin and I plan to treat the patient for 9 more days to complete a 2 week treatment course. Today, the patient is scheduled to have Dr. Borja do a lithotripsy and hopefully get rid of the 2 renal calculi. COMORBIDITIES: Cachexia, renal calculi, severe constipation and very severe brain damage. cc: Sushil Grigsby MD MTDD
[2019-12-31] MEDS: FOLIC ACID PO SCH (15:34)
[2019-12-31] MEDS: LACTULOSE PO SCH (15:34)
[2019-12-31] MEDS: KEPPRA PO SCH ×2 (15:35→21:29)
[2019-12-31] MEDS: MIRALAX PO SCH (15:36)
--- NOTE | 2019-12-31 16:39 | OPERATIVE NOTE ---
PROCEDURE DATE: 12/31/2019 SURGEON: Yvan Ramirez PREOPERATIVE DIAGNOSIS: Two left renal stones each about 10 mm in diameter. POSTOPERATIVE DIAGNOSIS: Two left renal stones each about 10 mm in diameter. PROCEDURE PERFORMED: Left extracorporeal shockwave lithotripsy. ANESTHESIA: General via laryngeal mask. FINDINGS: Left mid kidney stones each about 10 mm in diameter (x2). INDICATION FOR PROCEDURE: This 69-year-old female with history of recurrent urinary infections and cerebral palsy was admitted with a urinary infection and stool impaction. Evaluation revealed 2 large kidney stones. DESCRIPTION OF PROCEDURE: After informed consent was obtained from the patient's guardian and her receiving her routine IV antibiotics, she was taken to the main OR, placed in the supine position. General anesthesia via laryngeal mask was achieved. She was then placed in a proper position for left extracorporeal shockwave lithotripsy. Both stones received 3000 shocks. This was started at energy level 1, ramping to energy level 7. At completion, both stones appeared well fragmented. She received 12.5 g of mannitol at the start of the case. Total fluoroscopy time was 1 minute 42 seconds. She tolerated the procedure well. Estimated blood loss 0. She was taken to recovery room in good condition. cc: Fam Borja MD
--- NOTE | 2019-12-31 17:46 | PROGRESS NOTE ---
DATE: 12/31/2019 SUBJECTIVE: She is at her baseline. She is nonverbal, but moves her mouth and her arms. OBJECTIVE: Vital Signs: Blood pressure 146/91, heart rate of 90, respiratory rate 18, temperature 98 degrees, 99% on room air. Cardiovascular: Regular rate and rhythm. Pulmonary: Bilateral breath sounds clear to auscultation. Gastrointestinal: Abdomen soft, nontender, nondistended. Bowel sounds are positive. LABORATORY DATA: No new data today. PROBLEM LIST: 1. Escherichia coli bacteremia. She is on day 6 of Rocephin. We will anticipate IV antibiotics through the [facility]. 2. Large bilateral renal calculi. These underwent extracorporeal shock wave lithotripsy. She had general surgery. These were pulverized, I guess. Anticipate if everything looks stable tomorrow, then she will be able to go home tomorrow, complete her antibiotics. cc: Franko Venegas MD
[2020-01-01] MEDS: LACTULOSE PO SCH ×2 (05:15→09:32)
[2020-01-01] MEDS: XANAX PO SCH (06:29)
[2020-01-01] MEDS: PREVACID SOLUTAB PO SCH (06:29)
[2020-01-01 08:28] LABS: AGAP 12; BUN 31 mg/dL (8-22); CALCIUM 8.7 mg/dL (8.8-10.2); CHLORIDE 103 mmol/L (98-107); COSMO 278; CREATININE 0.4 mg/dL (0.5-0.9); ESTIMATED GFR > 60; GLUCOSE 86 mg/dL (70-104); POTASSIUM 4.7 mmol/L (3.5-5.1); SODIUM 136 mmol/L (136-145); TCO2 21 mmol/L (25-35)
[2020-01-01 09:23] LABS: BASO# 0.11 X1000 (0.0-0.2); BASO% 1.4 % (0.0-0.8); EOS# 0.01 X1000 (0.0-0.7); EOS% 0.1 % (0.0-10.0); HEMATOCRIT 33.5 % (37.0-47.0); HEMOGLOBIN 10.5 g/dL (12.0-16.0); IMM GRAN# 0.11 X1000 (0.0-0.04); IMM GRAN% 1.4 % (0.0-0.5); LYMPH# 1.81 X1000 (1.2-3.4); LYMPH% 23.2 % (20.5-51.1); MCH 32.8 PG (27-31); MCHC 31.3 g/dL (33-37); MCV 104.7 FL (81-99); MONO# 0.64 X1000 (0.11-0.59); MONO% 8.2 % (1.7-9.3); MPV 10.1 FL (7.4-10.4); NEUT# 5.11 X1000 (1.4-6.5); NEUT% 65.7 % (42.2-75.2); PLT 575 X1000 (130-400); RDW 13.7 % (11.5-14.5); WBC 7.79 X1000 (4.8-10.8)
[2020-01-01] MEDS: CLINIMIX E 4.25%-5% SOLUTION 1,000 ML IV SCH (09:31)
[2020-01-01] MEDS: LOPRESSOR PO SCH (09:32)
[2020-01-01] MEDS: KEPPRA PO SCH (09:32)
[2020-01-01] MEDS: MIRALAX PO SCH (09:32)
[2020-01-01] MEDS: FOLIC ACID PO SCH (09:33)
[2020-01-01] MEDS: ROCEPHIN 1 GM in NS 50 ML IV SCH (09:33)
[2020-01-01 12:49] VITALS: BP 146/63
--- NOTE | 2020-02-04 13:26 | DISCHARGE SUMMARY ---
ADMISSION DATE: 12/21/2019 DISCHARGE DATE: 01/01/2020 ADMISSION DIAGNOSES: 1. Urinary tract infection and sepsis. 2. Dehydration. 3. Pancytopenia. 4. Acute kidney injury. 5. Dementia. 6. Seizures. DISCHARGE DIAGNOSES: 1. Escherichia coli bacteremia. 2. Large bilateral renal calculi. PROCEDURE: She had an extracorporeal shock wave lithotripsy on the left. That was done on the . CONSULTATIONS: 1. Infectious Disease, Dr. Grigsby. 2. Dr. Lares, GI. 3. Dr. Borja, Urology. HOSPITAL COURSE: Briefly this is a 70-year-old female. I think she is a retirement patient with intellectual impairment. I do not think she is verbal in the sense of can communicate verbally. She makes noises. She was felt to have a urinary tract infection. She was placed on Levophed, vancomycin, Maxipime. She was given fluids. She had pancytopenia. White count was 15, creatinine was 2.9 with a BUN of 60. She had positive white blood cell count in her urine and large leukocytes. Her micro ended up growing out Escherichia coli. She had positive blood cultures for E coli which was not ESBL, but somewhat resistant, although there are 2 different growth patterns. She had a CT which showed a stool impaction, large left renal stone, some pleural effusions, cachexia. Nutrition had been an issue with her. She developed atrial fibrillation with RVR, but responded to metoprolol. Her bowels were managed with enemas. She was maintained on antibiotics, which I think was cefazolin. Dr. Grigsby was consulted and he recommended Rocephin for [address] Hernandez was consulted because patient was extremely cachectic with weight loss. She was placed on Clinimix and PPI, and did not feel she was necessarily a candidate for PEG tube or anything like that. She had an EGD, colonoscopy, which was really unrevealing, and the family decided against a PEG tube. The patient stabilized. Her repeat blood cultures on the were negative, so I think she eventually had a PICC placed. On the she was felt to be stable. However, I do not think the retirement could manage her home IV versus a SNF or rehab. I think what was decided is that the patient went home with an IV per Dr. Grigsby' recommendations, but they were going to physically take her to the hospital to get her treatment, which was 9 more days of treatment. We kept her here so that Dr. Borja could do extracorporeal shockwave lithotripsy, and then she was discharged on the . DISCHARGE MEDICATIONS: 1. Calcium 1 b.i.d. 2. Loratadine 10 daily. 3. Creon. 4. Hydroxyzine 50 at bedtime. 5. Keppra 750 b.i.d. 6. Prilosec 40 daily. 7. Vitamin D 2 50,000 units daily. 8. Xanax 0.5 t.i.d. 9. MiraLAX 17 daily, and then I think she went home on like I said a total of 2 weeks, I think another 9 days, of IV antibiotics, looks like here possibly another 8 days. DISCHARGE CONDITION: Stable. cc: MD Blas Hernandes MD William E. Hughes, MD Michael Kelso, MD Leroy F. Harris, MD
== END 2020-01-01 14:18 | disposition home or self-care (01) | DRG 853 ==
LOC: P.ED 07:35 → P.EDIPHOLD 10:38 → SUATTDRO 10:38 → ICU 17:51 → 2N 12-24 15:27 → 3N 12-28 15:58
PROVIDERS: ATTEND Internal Medicine
PROC: UR.ESWL (2019-12-31 13:44)